=== PATIENT | female | born 1995 ===

== ENCOUNTER 2017-10-24 00:48 | Inpatient (IN) | payer OTHER ==
--- NOTE | 2017-10-24 01:35 | ED PDOC ---
Arrival/HPI - General Chief Complaint: Abdominal Pain Time Seen by Provider: 10/24/17 00:59 Historian: Patient - History of Present Illness Narrative History of Present Illness (Text): 10/24/17 01:23 Venecia Clayton is a 22 year old female, whose past medical history includes gallstones, who presents to the Emergency department complaining of upper abdominal pain tonight. Patient states she was recently diagnosed with gallstones after delivering her child 3 weeks ago. Patient states she has been experiencing some intermittent abdominal discomfort since then, but developed upper abdominal pain radiating to her back after eating dinner yesterday evening. Patient reports associated nausea and vomiting. Patient denies any fever, chills, chest pain, diarrhea, urinary symptoms, back pain, neck pain, headache, dizziness, or any other complaints. Symptom Onset: Gradual Symptom Course: Unchanged Activities at Onset: Light Context: Home Past Medical History - Provider Review Nursing Documentation Reviewed: Yes - Cardiac Hx Hypertension: Yes - Pulmonary Hx Respiratory Disorders: No - Neurological Hx Neurological Disorder: No - HEENT Hx HEENT Disorder: No - Renal Hx Renal Disorder: No - Endocrine/Metabolic Hx Endocrine Disorders: No - Hematological/Oncological Hx Blood Disorders: No - Integumentary Hx Dermatological Disorder: No - Musculoskeletal/Rheumatological Hx Musculoskeletal Disorders: No - Gastrointestinal Hx Gastrointestinal Disorders: No Hx Gall Bladder Disease: Yes (hx gallstones) - Genitourinary/Gynecological Hx Genitourinary Disorders: No - Psychiatric Hx Anxiety: Yes Hx Substance Use: No Family/Social History - Physician Review Nursing Documentation Reviewed: Yes Family/Social History: Unknown Family HX Smoking Status: Never Smoked Hx Alcohol Use: No Hx Substance Use: No Allergies/Home Meds Allergies/Adverse Reactions: Allergies amoxicillin Allergy (Verified 10/24/17 01:13) RASH Home Medications: Home Meds Medication Instructions Recorded Confirmed No Known Home Med 10/24/17 10/24/17 Review of Systems - Physician Review All systems were reviewed & negative as marked: Yes - Review of Systems Constitutional: Normal. absent: Fevers Eyes: Normal ENT: Normal Respiratory: Normal. absent: SOB, Cough Cardiovascular: Normal. absent: Chest Pain Gastrointestinal: Abdominal Pain, Nausea, Vomiting. absent: Diarrhea Genitourinary Female: Normal. absent: Dysuria, Frequency, Hematuria, Urine Output Changes Musculoskeletal: Back Pain. absent: Neck Pain Skin: Normal. absent: Rash Neurological: Normal. absent: Headache, Dizziness Endocrine: Normal Hemo/Lymphatic: Normal Psychiatric: Normal Physical Exam Vital Signs Reviewed: Yes Vital Signs Temp Pulse Resp BP Pulse Ox 10/24/17 04:06 56 L 16 135/73 100 10/24/17 01:14 98.1 F 82 18 165/43 H 99 Temperature: Afebrile Blood Pressure: Hypertensive Pulse: Regular Respiratory Rate: Normal Appearance: Positive for: Well-Appearing, Non-Toxic, Comfortable Pain Distress: None Mental Status: Positive for: Alert and Oriented X 3 - Systems Exam Head: Present: Atraumatic, Normocephalic Pupils: Present: PERRL Extroacular Muscles: Present: EOMI Conjunctiva: Present: Normal Mouth: Present: Moist Mucous Membranes Neck: Present: Normal Range of Motion Respiratory/Chest: Present: Clear to Auscultation, Good Air Exchange. No: Respiratory Distress, Accessory Muscle Use Cardiovascular: Present: Regular Rate and Rhythm, Normal S1, S2. No: Murmurs Abdomen: Present: Tenderness (RUQ tenderness). No: Distention, Peritoneal Signs Back: Present: Normal Inspection Upper Extremity: Present: Normal Inspection. No: Cyanosis, Edema Lower Extremity: Present: Normal Inspection. No: Edema Neurological: Present: GCS=15, CN II-XII Intact, Speech Normal Skin: Present: Warm, Dry, Normal Color. No: Rashes Psychiatric: Present: Alert, Oriented x 3, Normal Insight, Normal Concentration Medical Decision Making ED Course and Treatment: 10/24/17 01:23 Impression: 22 year old female complaining of upper abdominal pain, nausea, and vomiting tonight. Differential Diagnosis included but are not limited to: biliary colic Plan: -- US Gallbladder and Pancreas -- Labs, lipase -- Urinalysis -- IV fluids -- Toradol -- Zofran -- Reassess and disposition Progress Notes: 10/24/17 04:12 US Gallbladder and Pancreas shows: Gallbladder: Contains multiple shadowing stones, as well as sludge. Appears mildly dilated. No significant gallbladder wall thickening noted. No evidence of pericholecystic fluid. Reportedly negative sonographic Chong's sign. Common bile duct: Does not appear abnormally dilated, measuring less than 6 mm in diameter. Liver: Mildly enlarged, measuring 17.7 cm in length. Otherwise within normal limits in appearance. Pancreas: Imaged portions appear unremarkable. Right kidney: Within normal limits in appearance. Measures 11 cm in length. No evidence of hydronephrosis. IMPRESSION: Gallstones. No sonographic evidence of acute cholecystitis. Mild hepatomegaly. Otherwise negative exam. 10/24/17 05:[address] Lomax, who is aware and agrees with plan. Accepts pt in to her service. Pt will go to [facility] observation for cholelithiasis, biliary colic, and intractable abdominal pain. 10/24/17 05:05 Case discussed with certified surgical assistant communication center coordinator, who is aware and agrees to evaluate pt. - Lab Interpretations Lab Results: 10/24/17 01:40 10/24/17 01:40 Lab Results 10/24/17 01:40: WBC 6.6, RBC 4.42, Hgb 12.8, Hct 38.3, MCV 86.7, MCH 29.0, MCHC 33.4, RDW 14.3, Plt Count 388, MPV 9.5 10/24/17 01:40: Sodium 142, Potassium 4.5, Chloride 106, Carbon Dioxide 25, Anion Gap 15, BUN 10, Creatinine 0.6 L, Est GFR ( Amer) > 60, Est GFR ( Non-Af Amer) > 60, Random Glucose 101, Calcium 9.8, Total Bilirubin 0.2, AST 48 H, ALT 50, Alkaline Phosphatase 123, Total Protein 7.7, Albumin 4.1, Globulin 3.5, Albumin/Globulin Ratio 1.2, Lipase 83 10/24/17 01:40: Urine Color Yellow, Urine Appearance Clear, Urine pH 6.0, Ur Specific [place] >= 1.030, Urine Protein Negative, Urine Glucose (UA) Negative, Urine Ketones Negative, Urine Blood Trace-intact H, Urine Nitrate Negative, Urine Bilirubin Negative, Urine Urobilinogen 0.2, Ur Leukocyte Esterase Small H , Urine RBC 0 - 2, Urine WBC 2 - 5, Ur Epithelial Cells 4 - 5, Urine Bacteria Small I have reviewed the lab results: Yes - RAD Interpretation Radiology Orders: 10/24/17 01:36 GALLBLADDER & PANCREAS [US] Stat Vocational Counselor: Radiologist - Medication Orders Current Medication Orders: Discontinued Medications Sodium Chloride (Sodium Chloride 0.9%) 1,000 mls @ 999 mls/hr IV .Q1H1M STA Stop: 10/24/17 02:36 Last Admin: 10/24/17 01:48 Dose: 999 mls/hr eMAR Start Stop Document 10/24/17 01:48 CNR (Rec: 10/24/17 01:48 CNR [id number]) Intravenous Solution Start Date 10/24/17 Start Time 01:48 Ketorolac Tromethamine (Toradol) 30 mg IVP ONCE ONE Stop: 10/24/17 01:37 Last Admin: 10/24/17 01:48 Dose: 30 mg MAR Pain Assessment Document 10/24/17 01:48 CNR (Rec: 10/24/17 01:48 CNR [id number]) Pain Reassessment Is this a pain reassessment? Yes IVP Administration Document 10/24/17 01:48 CNR (Rec: 10/24/17 01:48 CNR [id number]) Charges for Administration # of IVP Administrations 1 Morphine Sulfate (Morphine) 2 mg IVP STAT STA Stop: 10/24/17 04:51 Ondansetron HCl (Zofran Inj) 4 mg IVP ONCE ONE Stop: 10/24/17 01:37 Last Admin: 10/24/17 01:48 Dose: 4 mg IVP Administration Document 10/24/17 01:48 CNR (Rec: 10/24/17 01:48 CNR [id number]) Charges for Administration # of IVP Administrations 1 - Scribe Statement The provider has reviewed the documentation as recorded by the Irwin Velarde Provider Scribe Attestation: All medical record entries made by the Scribe were at my direction and personally dictated by me. I have reviewed the chart and agree that the record accurately reflects my personal performance of the history, physical exam, medical decision making, and the department course for this patient. I have also personally directed, reviewed, and agree with the discharge instructions and disposition. Disposition/Present on Arrival - Present on Arrival Any Indicators Present on Arrival: No History of DVT/PE: No History of Uncontrolled Diabetes: No Urinary Catheter: No History of Decub. Ulcer: No History Surgical Site Infection Following: None - Disposition Have Diagnosis and Disposition been Completed?: Yes Diagnosis: Cholelithiasis, Biliary colic, Intractable pain Disposition: HOSPITALIZED Disposition Time: 05:09 Condition: STABLE Forms: [employer] (Italian)
[2017-10-24] MEDS ORDERED: Sodium Chloride 0.9% 1,000 ML IV STA ×2 (01:36→05:12)
[2017-10-24 02:05] LABS: URINE BILIRUBIN NEGATIVE (NEGATIVE); URINE BLOOD TRACE-INTACT (NEGATIVE); URINE GLUCOSE (UA) NEGATIVE (NEGATIVE); URINE LEUKOCYTE ESTERASE SMALL Leu/uL (NEGATIVE); URINE PROTEIN NEGATIVE mg/dL (<30 mg/dL); URINE UROBILINOGEN 0.2 E.U./dL (<1 E.U./dL)
[2017-10-24 02:07] LABS: HEMOGLOBIN 12.8 g/dL (12.0-16.0); MEAN CELL VOLUME 86.7 fl (80.0-105.0); MEAN CORPUSCULAR HGB CONC 33.4 g/dl (31.0-37.0); MEAN PLATELET VOLUME 9.5 fl (7.0-11.0); RBC 4.42 10^6/uL (3.5-6.1); RED CELL DISTRIBUTION WIDTH 14.3 % (11.5-14.5); WHITE BLOOD COUNT 6.6 10^3/ul (4.5-11.0)
[2017-10-24 02:08] LABS: URINE APPEARANCE CLEAR (CLEAR); URINE COLOR YELLOW (YELLOW)
[2017-10-24 02:17] LABS: ALB/GLOB RATIO 1.2 (1.1-1.8); ALBUMIN 4.1 g/dL (3.0-4.8); ALT/SGPT 50 U/L (7-56); AST/SGOT 48 U/L (14-36); BLOOD UREA NITROGEN 10 mg/dL (7-21); CALCIUM 9.8 mg/dL (8.4-10.5); GFR AFRICAN-AMERICAN > 60; GFR NON-AFRICAN AMERICAN > 60; LIPASE 83 U/L (23-300)
--- NOTE | 2017-10-24 02:42 | US ---
EXAM: US Abdomen Limited, Right Upper Quadrant EXAM DATE/TIME: 10/24/2017 1:36 AM CLINICAL HISTORY: 22 years old, female; Pain; Abdominal pain; Generalized TECHNIQUE: Real-time ultrasound of the right upper quadrant with image documentation. COMPARISON: No relevant prior studies available. FINDINGS: Gallbladder: Contains multiple shadowing stones, as well as sludge. Appears mildly dilated. No significant gallbladder wall thickening noted. No evidence of pericholecystic fluid. Reportedly negative sonographic Chong's sign. Common bile duct: Does not appear abnormally dilated, measuring less than 6 mm in diameter. Liver: Mildly enlarged, measuring 17.7 cm in length. Otherwise within normal limits in appearance. Pancreas: Imaged portions appear unremarkable. Right kidney: Within normal limits in appearance. Measures 11 cm in length. No evidence of hydronephrosis. IMPRESSION: Gallstones. No sonographic evidence of acute cholecystitis. Mild hepatomegaly. Otherwise negative exam.
[2017-10-24 03:16] LABS: URINE BACTERIA SMALL (NEG); URINE RBC 0 - 2 /hpf (0-2)
[2017-10-24] MEDS ORDERED: Morphine 4 mg/ml ISec IVP STA (04:50)
[2017-10-24] MEDS ORDERED: Morphine 4 mg/ml ISec IVP PRN ×2 (05:45→14:10)
[2017-10-24] MEDS ORDERED: metroNIDAZOLE IV 500 mg/100 ml 500 MG/100 ML BAG IVPB SCH (06:00)
[2017-10-24] MEDS ORDERED: Lactated Ringer's 1,000 ML IV SCH ×2 (06:00→14:15)
--- NOTE | 2017-10-24 06:28 | CP.PCM.HP ---
History of Present Illness - History of Present Illness History of Present Illness: General Surgery: Dr Lomax Pt is a 22F with no significant PMH who presents to ED with RUQ pain which started around 11PM. Pt reports she has been having pain every night for the past 3 weeks, always in the RUQ. Pt states the pain feels like contractions, 8/ 10, which do not radiate anywhere. Typically they last 2-3 hours but this particular time it has lasted 9+ hours. Pt admits to single episode of emesis, non-bloody, non-billious. Denies fevers, chills, sob or chest pain. Pt has been told in the past she has gallstones and would like to have her gb removed. PMH: none PSH: none All: amoxicillin Present on Admission - Present on Admission Any Indicators Present on Admission: No Review of Systems - Review of Systems All systems: reviewed and no additional remarkable complaints except (as per hpi ) Past Patient History - Past Social History Smoking Status: Never Smoked - CARDIAC Hx Hypertension: Yes - PULMONARY Hx Respiratory Disorders: No - NEUROLOGICAL Hx Neurological Disorder: No - HEENT Hx HEENT Problems: No - RENAL Hx Chronic Kidney Disease: No - ENDOCRINE/METABOLIC Hx Endocrine Disorders: No - HEMATOLOGICAL/ONCOLOGICAL Hx Blood Disorders: No - INTEGUMENTARY Hx Dermatological Problems: No - MUSCULOSKELETAL/RHEUMATOLOGICAL Hx Musculoskeletal Disorders: No - GASTROINTESTINAL Hx Gastrointestinal Disorders: No Hx Gall Bladder Disease: Yes (hx gallstones) - GENITOURINARY/GYNECOLOGICAL Hx Genitourinary Disorders: No - PSYCHIATRIC Hx Anxiety: Yes Hx Substance Use: No Meds Allergies/Adverse Reactions: Allergies Allergy/AdvReac Type Severity Reaction Status Date / Time amoxicillin Allergy RASH Verified 10/24/17 01:13 Physical Exam - Constitutional Appears: Non-toxic, No Acute Distress - Head Exam Head Exam: NORMAL INSPECTION - Eye Exam Eye Exam: Normal appearance. absent: Scleral icterus - Respiratory Exam Respiratory Exam: absent: Accessory Muscle Use, Respiratory Distress - Cardiovascular Exam Cardiovascular Exam: REGULAR RHYTHM. absent: Tachycardia - GI/Abdominal Exam GI & Abdominal Exam: Soft, Tenderness (RUQ). absent: Distended, Firm, Guarding , Rebound, Rigid - Rectal Exam Rectal Exam: absent: Deferred - Extremities Exam Extremities exam: Negative for: pedal edema - Psychiatric Exam Psychiatric exam: Normal Affect, Normal Mood - Skin Skin Exam: Normal Color, Warm Results - Vital Signs Recent Vital Signs: Last Vital Signs Temp 98.1 F 10/24/17 05:38 Pulse 70 10/24/17 05:38 Resp 19 10/24/17 05:38 BP 131/81 10/24/17 05:38 Pulse Ox 99 10/24/17 05:38 - Labs Result Diagrams: 10/24/17 01:40 10/24/17 01:40 Assessment & Plan - Assessment and Plan (Free Text) Assessment: 22F with biliary colic Plan: admit NPO IV fluids abx plan for OR later today will d/w Dr Dami Mike, PGY3
[2017-10-24] MEDS ORDERED: Ciprofloxacin 400mg/200ml D5W 400 MG/200 ML BAG IVPB SCH (10:00)
[2017-10-24] MEDS ORDERED: Propofol 10 mg/ml Inj (20 ML) ONE (12:31)
[2017-10-24] MEDS ORDERED: Midazolam 2 MG/2 ML VIAL ONE (12:32)
[2017-10-24] MEDS ORDERED: Rocuronium 10 mg/ml (5 ml) ONE (12:34)
[2017-10-24] MEDS ORDERED: Neostigmine Methylsulfate 3mg/3ml Syringe IV ONE (12:58)
[2017-10-24] MEDS ORDERED: Phenylephrine 10 mg/ml Inj ONE (13:30)
[2017-10-24] MEDS ORDERED: Glycopyrrolate 0.2 mg/ml (2ml vial) ONE (13:43)
--- NOTE | 2017-10-24 14:00 | PCM.SURG1 ---
Surgeon's Initial Post Op Note - Surgeon's Notes Surgeon: Dami Reference Archivist: Rayna PGY3, White PGY3 Type of Anesthesia: General Endo Pre-Operative Diagnosis: biliary colic Operative Findings: chronically inflamed gallbladder Post-Operative Diagnosis: same Operation Performed: laparoscopic cholecystectomy Specimen/Specimens Removed: gallbladder Estimated Blood Loss: EBL {In ML}: 10 Blood Products Given: N/A Drains Used: No Drains Post-Op Condition: Good Date of Surgery/Procedure: 10/24/17 Time of Surgery/Procedure: 14:01
[2017-10-24] MEDS ORDERED: Oxycodone/Acetaminophen 5/325 mg Tab PO PRN (14:02)
[2017-10-24] MEDS ORDERED: HYDROmorphone 0.5 mg/0.5 ml ISec IVP PRN (14:03)
--- NOTE | 2017-10-25 07:13 | CP.PCM.PN ---
Subjective - Date & Time of Evaluation Date of Evaluation: 10/25/17 Time of Evaluation: 07:10 - Subjective Subjective: Surgery: Dr. Lomax Pt seen and examined. Resting comfortably in bed. Pain controlled. No N/V. Tolerating diet. Ambulating without difficulty. Objective - Vital Signs/Intake and Output Vital Signs (last 24 hours): Temp Pulse Resp BP Pulse Ox 97.9 F 82 18 137/86 100 10/24/17 15:22 10/24/17 15:22 10/24/17 15:22 10/24/17 15:22 10/24/17 15:22 - Medications Medications: Current Medications Hydromorphone HCl (Dilaudid) 0.5 mg IVP Q4H PRN PRN Reason: Pain, severe (8-10) Lactated Ringer's (Lactated Ringer's) 1,000 mls @ 100 mls/hr IV .Q10H CHARLY Last Admin: 10/24/17 06:10 Dose: 100 mls/hr Ketorolac Tromethamine (Toradol) 30 mg IVP Q6 PRN PRN Reason: Pain, Mild (1-3) Last Admin: 10/24/17 20:22 Dose: 30 mg Oxycodone/Acetaminophen (Percocet 5/325 Mg Tab) 1 tab PO Q4H PRN PRN Reason: Pain, moderate (4-7) Stop: 10/27/17 14:03 Last Admin: 10/24/17 17:29 Dose: 1 tab - Constitutional Appears: Non-toxic, No Acute Distress - Head Exam Head Exam: ATRAUMATIC, NORMOCEPHALIC - Eye Exam Eye Exam: EOMI - ENT Exam ENT Exam: Mucous Membranes Moist - Neck Exam Neck Exam: Full ROM - Respiratory Exam Respiratory Exam: NORMAL BREATHING PATTERN. absent: Accessory Muscle Use, Respiratory Distress - GI/Abdominal Exam GI & Abdominal Exam: Soft, Tenderness (trey-incisional). absent: Distended, Firm, Guarding, Rigid - Extremities Exam Extremities Exam: absent: Calf Tenderness, Pedal Edema - Neurological Exam Neurological Exam: Alert, Awake, Oriented x3 - Skin Skin Exam: Dry, Normal Color, Warm Assessment and Plan - Assessment and Plan (Free Text) Assessment: 22F w. biliary colic, s/p lap mukesh POD#1 -clear for D/C from surgical standpoint -Activity as tolerated, no lifting >15-20lbs for 4 weeks -Tylenol/Advil for pain -F/U w. Dr. Lomax in 1-2 weeks -If symptoms worsen, return to ED -d/w attending Rayna PGY3
[2017-10-25 07:47] VITALS: BP 123/81; PULSE 54; RESP 20; TEMP 98.5; O2SAT 97
--- NOTE | 2017-10-25 16:49 | OP ---
PROCEDURE DATE: 10/24/2017 SURGEON: Dr. Lomax. ASSISTANTS: Dr. Martinez and Dr. Muñoz. ANESTHESIA: General, Dr. Lowe. PREOPERATIVE DIAGNOSIS: Biliary colic. POSTOPERATIVE DIAGNOSIS: Biliary colic. PROCEDURE: Laparoscopic cholecystectomy. DESCRIPTION OF OPERATION: With the patient in the supine position under adequate general anesthesia, the abdomen was prepped and draped in the usual sterile manner. A Veress needle puncture was performed to the umbilicus with inflation to 15 cm water pressure of CO2 and a 10 mm laparoscopic trocar was inserted via a supraumbilical incision. Under direct vision, additional trocars were inserted in the epigastrium and right upper quadrant. The gallbladder was visualized. It was not acutely inflamed or distended; however, there was significant adhesion of the omentum to the peritoneal surface of the gallbladder down to the infundibulum consistent with recent inflammation. The omentum was taken down to the fundus that was grasped and elevated. The omentum was taken down to expose the infundibulum which was grasped and retracted laterally. The cystic duct was dissected and inflammatory fibers surrounding the cystic duct cleared to allow the cystic duct to be viewed anteriorly and posteriorly entering the gallbladder. The cystic duct was then triply clipped and divided. Cystic artery was similarly identified, triply clipped and divided, and the gallbladder was dissected free of the liver bed using an electrocautery. The liver bed was inspected for hemostasis and the dissection was completed. The gallbladder was placed in a specimen retrieval bag and removed via the umbilical port site. It was noted to contain multiple stones. The right upper quadrant was irrigated and suctioned. The pneumoperitoneum was released and the trocars were removed. The umbilical port site was closed with a [id number] fascial suture of 0 Vicryl. All incisions were closed with 4-0 Monocryl subcuticular sutures and Steri-Strips. Dry sterile dressings were applied. The patient tolerated the procedure well and transferred to the recovery room in stable condition. ESTIMATED BLOOD LOSS FOR THE PROCEDURE: 10 mL. Angel Luis Lomax MD
== END 2017-10-25 10:55 | disposition home or self-care (01) | DRG 419 ==
LOC: ED 00:48 → ERH 05:09 → 5RSO 06:32 → OBSVTOIN 11:50 → UNDODISIN 13:07
PROVIDERS: ADMIT Specialist; ATTEND Specialist
PROC: 0FT44ZZ Resection of Gallbladder, Percutaneous Endoscopic Approach (ICD-10-PCS; principal; 2017-10-24 15:00)
DX: K80.10 Calculus of gallbladder with chronic cholecystitis without obstruction (principal); I10 Essential (primary) hypertension; Z88.0 Allergy status to penicillin; R40.2412 Glasgow coma scale score 13-15, at arrival to emergency department

== ENCOUNTER 2017-11-11 13:23 | Emergency (ER) | payer OTHER ==
[2017-11-11 13:36] VITALS: TEMP 98.4; BMI 24.7
[2017-11-11] MEDS ORDERED: Sodium Chloride 0.9% 1,000 ML IV STA (13:56)
[2017-11-11] MEDS ORDERED: HYDROmorphone 0.5 mg/0.5 ml ISec IVP STA (13:56)
--- NOTE | 2017-11-11 13:58 | ED PDOC ---
Arrival/HPI - General Chief Complaint: Abdominal Pain Time Seen by Provider: 11/11/17 13:55 Historian: Patient, Spouse - History of Present Illness Narrative History of Present Illness (Text): 11/11/17 13:55 pt p/w + sudden onset of severe epigastric pain/mid abd pain with mild radiation of pain to her mid back; pt states symptoms occurred ~ < 1 hour prior to ED arrival; pt states she did not feel well since last night; pt states + nausea, no vomiting, NO appetite currently; no fever/chills/sweats, no cp/sob/ palpitations, no urinary/bowel changes, last bm was 1-2 days ago (usual timeframe); pt states her abd pain is worse than her previous biliary colic pain ; pt states she had pork chop for dinner last night; pt states no gross bleeding /rashes pt denied fall/trauma/sick contact, no optical dispenser denied other complaints pt is here for further eval. PCP: none LMP: yesterday pt gave 5 weeks ago pt received choleycystectomy [address] Lomax and did well Time/Duration: Prior to Arrival Symptom Onset: Sudden Symptom Course: Worsening Quality: Stabbing, Cramping Severity Level: 9, Severe Activities at Onset: Rest Context: Home Past Medical History - Provider Review Nursing Documentation Reviewed: Yes - Travel History Have you recently traveled outside [place] w/in the past 3 mons?: No - Past History Past History: No Previous - Infectious Disease Hx of Infectious Diseases: None - Tetanus Immunization Tetanus Immunization: Unknown - Reproductive Menopause: No Currently : No - Cardiac Hx Cardiac Disorders: No - Pulmonary Hx Respiratory Disorders: No - Neurological Hx Neurological Disorder: No - HEENT Hx HEENT Disorder: No - Renal Hx Renal Disorder: No - Endocrine/Metabolic Hx Endocrine Disorders: No - Hematological/Oncological Hx Blood Transfusions: No Hx Blood Transfusion Reaction: No - Integumentary Hx Dermatological Disorder: No - Musculoskeletal/Rheumatological Hx Musculoskeletal Disorders: No Hx Falls: No - Gastrointestinal Hx Gastrointestinal Disorders: No - Genitourinary/Gynecological Other/Comment: Recently had vaginal (09/2017) - Psychiatric Hx Psychophysiologic Disorder: No Hx Substance Use: No - Anesthesia Hx Anesthesia Reactions: No Hx Malignant Hyperthermia: No Family/Social History - Physician Review Nursing Documentation Reviewed: Yes Family/Social History: No Known Family HX Smoking Status: Never Smoked Hx Alcohol Use: No Hx Substance Use: No Hx Substance Use Treatment: No Allergies/Home Meds Allergies/Adverse Reactions: Allergies amoxicillin Allergy (Verified 10/24/17 01:13) RASH Review of Systems - Review of Systems Constitutional: Normal Eyes: Normal ENT: Normal Respiratory: Normal. absent: SOB Cardiovascular: Normal. absent: Chest Pain Gastrointestinal: Abdominal Pain, Nausea. absent: Vomiting Genitourinary Female: Normal Musculoskeletal: Normal Skin: Normal Neurological: Dizziness. absent: Headache Endocrine: Normal Hemo/Lymphatic: Normal Physical Exam Vital Signs Reviewed: Yes Vital Signs Temp Pulse Resp BP Pulse Ox 11/11/17 19:40 71 17 120/70 99 11/11/17 17:30 69 18 124/69 97 11/11/17 15:25 75 18 126/74 97 11/11/17 13:30 98.4 F 82 26 H 128/86 98 Temperature: Afebrile Blood Pressure: Normal Pulse: Regular Respiratory Rate: Tachypneic Appearance: Positive for: Well-Appearing, Non-Toxic, Uncomfortable, Other (alert /awake, holding her abd, uncomfortable, mild-moderate distress due to pain, cooperative, GCS = 15, oriented x 3) Pain Distress: Moderate Mental Status: Positive for: Alert and Oriented X 3 - Systems Exam Head: Present: Atraumatic, Normocephalic Pupils: Present: PERRL, Other (no nystagmus, no photophobia, sclera anicteric, visual field intact b/l) Extroacular Muscles: Present: EOMI Conjunctiva: Present: Normal Ears: Present: Normal Mouth: Present: Normal Teeth, Other (mild dry oral mucosa, no drooling/stridor, no exudate/lesions, uvula/tongue are midline) Pharnyx: Present: Normal Nose (External): Present: Atraumatic Nose (Internal): Present: Normal Inspection Neck: Present: Normal Range of Motion, Trachea Midline. No: Meningeal Signs, MIDLINE TENDERNESS, Paraspinal Tenderness Respiratory/Chest: Present: Clear to Auscultation, Good Air Exchange, Other ( CTA b/l, no w/r/r). No: Respiratory Distress, Accessory Muscle Use Cardiovascular: Present: Regular Rate and Rhythm, Normal S1, S2. No: Murmurs Abdomen: Present: Tenderness (diffuse mid abd tenderness, no gayle's sign, no mcburney's point tenderness), Normal Bowel Sounds, Other (well nourished female , no guarding/rigidity/rebound/masses). No: McBurney's Point Tender Back: Present: Normal Inspection. No: CVA Tenderness, Midline Tenderness, Paraspinal Tenderness Upper Extremity: Present: Normal Inspection, Normal ROM, NORMAL PULSES, Neurovascularly Intact. No: Deformity Lower Extremity: Present: Normal Inspection, NORMAL PULSES, Neurovascularly Intact. No: Deformity Neurological: Present: GCS=15, CN II-XII Intact, Speech Normal Skin: Present: Warm, Normal Color, Other (cap refill ~ 1sec, no ulcerations, no petechiae, mild pallor, no rashes) Psychiatric: Present: Alert, Oriented x 3 Medical Decision Making ED Course and Treatment: 11/11/17 13:59 Impression: epigastric pain i have consider all the differential diagnosis regarding pt's chief medical complaints/clinical findings, including but are not limited to: epigastric pain A/P: epigastric pain - ct - labs - iv - ekg? - ua - supportive care - observe/reevaluation 11/11/17 15:00 Upon reassessment, patient denies any abdominal pain or any new complaints. Waiting on CT and diagnostic results. 11/11/17 17:35 pt is doing well currently pt did have nausea prior, while awaiting on CT results pt states her pain remained well controlled pt is made aware of her medical results pt is awaiting symptoms improvement 11/11/17 19:30 pt tolerated po well pt is comfortable pt developed a reaction to ceftriaxone at the end of the medication (+body itching, no rashes noted) pt is instructed that she may be allergic to Ceftriaxone pt is made aware of her medical results pt is encouraged fluids pt will f/u as directed pt will be discharged home Re-evaluation Time: 17:35 Reassessment Condition: Improved - Lab Interpretations Lab Results: 11/11/17 14:21 11/11/17 14:21 Lab Results 11/11/17 14:21: pO2 62 H, VBG pH 7.38, VBG pCO2 36.0 L, VBG HCO3 21.3, VBG Total CO2 22.4, VBG O2 Sat (Calc) 94.4 H, VBG Base Excess -3.3 L, VBG Potassium 3.7, Sodium 139.0, Chloride 109.0 H, Glucose 101, Lactate 1.6, FiO2 21.0, Venous Blood Potassium 3.7 11/11/17 14:21: Sodium 142, Chloride 108 H, Potassium 3.8, Carbon Dioxide 19 L, Anion Gap 19, BUN 8, Creatinine 0.6 L, Est GFR ( Amer) > 60, Est GFR (Non -Af Amer) > 60, Random Glucose 98, Calcium 9.8, Total Bilirubin 1.0, AST 52 H, ALT 38, Alkaline Phosphatase 116, Total Protein 7.9, Albumin 4.6, Globulin 3.3, Albumin/Globulin Ratio 1.4, Lipase 54 11/11/17 14:21: PT 12.0, INR 1.05, APTT 26.3 11/11/17 14:21: WBC 6.8, RBC 4.24, Hgb 12.0, Hct 35.7 L, MCV 84.2, MCH 28.3, MCHC 33.6, RDW 14.1, Plt Count 409, MPV 9.8, Gran % 36.3 L, Lymph % (Auto) 52.9 H, Pershing % (Auto) 5.1, Eos % (Auto) 5.4 H, Baso % (Auto) 0.3, Gran # 2.46, Lymph # (Auto) 3.6 H, Pershing # (Auto) 0.4, Eos # (Auto) 0.4, Baso # (Auto) 0.02 11/11/17 14:00: Urine Color Yellow, Urine Appearance Sl cloudy, Urine pH 6.0, Ur Specific Dawes >= 1.030, Urine Protein Trace H, Urine Glucose (UA) Negative , Urine Ketones Negative, Urine Blood Large H, Urine Nitrate Negative, Urine Bilirubin Negative, Urine Urobilinogen 0.2, Ur Leukocyte Esterase Moderate H, Urine RBC 20 - 25, Urine WBC 15 - 20, Ur Epithelial Cells 6 - 8, Amorphous Sediment Few, Urine Bacteria Large I have reviewed the lab results: Yes Interpretation: Abnormal lab values (+ UTI) - RAD Interpretation Narrative RAD Interpretations (Text): 11/11/17 14:37 Chest X-ray reviewed by radiologist, shows no active disease. 11/11/17 17:15 CT of Abdomen/Pelvis reviewed by radiologist, shows: FINDINGS: LOWER THORAX: Unremarkable. LIVER: Unremarkable. No gross lesion or ductal dilatation. GALLBLADDER AND BILE DUCTS: Trace fluid in the gallbladder fossa, expected findings status post recent cholecystectomy. PANCREAS: Unremarkable. No gross lesion or ductal dilatation. SPLEEN: Unremarkable. ADRENALS: Unremarkable. No mass. KIDNEYS AND URETERS: Unremarkable. No hydronephrosis. No solid mass. VASCULATURE: Unremarkable. No aortic aneurysm. BOWEL: Constipation without fecal impaction or obstruction. APPENDIX: Normal appendix. PERITONEUM: Unremarkable. No free fluid. No free air. LYMPH NODES: Unremarkable. No enlarged lymph nodes. BLADDER: Unremarkable. REPRODUCTIVE: Unremarkable. BONES: No acute fracture. OTHER FINDINGS: None. IMPRESSION: Status post recent cholecystectomy. Expected findings in the gallbladder fossa. No significant or acute findings to account for/ related to the clinical presentation. Radiology Orders: 11/11/17 13:56 CHEST PORTABLE [RAD] Stat 11/11/17 13:57 ABD & PELVIS IV CONTRAST ONLY [CT] Stat Glass Edger: Radiologist - EKG Interpretation EKG Interpretation (Text): 11/11/17 17:43 Sinus rhythm at 65 bpm, slight rightward axis, no ectopy, no st-t changes, BORDERLINE EKG; no old ekg to compare with Interpreted by ED Physician: Yes Type: 12 lead EKG Comparison: No previous EKG avail. - Medication Orders Current Medication Orders: Discontinued Medications Diphenhydramine HCl (Benadryl) 25 mg IVP STAT STA Stop: 11/11/17 18:36 Last Admin: 11/11/17 18:40 Dose: 25 mg IVP Administration Document 11/11/17 18:40 RD (Rec: 11/11/17 18:40 RD [id number]) Charges for Administration # of IVP Administrations 1 Famotidine (Pepcid) 20 mg IVP STAT STA Stop: 11/11/17 13:57 Last Admin: 11/11/17 14:38 Dose: 20 mg IVP Administration Document 11/11/17 14:38 RD (Rec: 11/11/17 14:38 RD [id number]) Charges for Administration # of IVP Administrations 1 Hydromorphone HCl (Dilaudid) 1 mg IVP STAT STA Stop: 11/11/17 13:57 Last Admin: 11/11/17 14:44 Dose: 1 mg MAR Pain Assessment Document 11/11/17 14:44 RD (Rec: 11/11/17 14:44 RD [id number]) Pain Reassessment Is this a pain reassessment? No Sleep Is patient sleeping during reassessment? No Presence of Pain Presence of Pain Yes Pain Scale Used Pain Scale Used Numeric Location Left, Right or Bilateral Left Upper or Lower Upper Pain Location Body Site Abdomen Description Description Constant Intensity of Pain at present 8 Pain Behavior Guarding Irritability IVP Administration Document 11/11/17 14:44 RD (Rec: 11/11/17 14:44 RD [id number]) Charges for Administration # of IVP Administrations 1 Sodium Chloride (Sodium Chloride 0.9%) 1,000 mls @ 1,000 mls/hr IV .Q1H STA Stop: 11/11/17 14:55 Last Admin: 11/11/17 14:38 Dose: 1,000 mls/hr eMAR Start Stop Document 11/11/17 14:38 RD (Rec: 11/11/17 14:38 RD [id number]) Intravenous Solution Start Date 11/11/17 Start Time 14:38 End Date 11/11/17 End time 15:38 Total Infusion Time 60 Ceftriaxone Sodium (Rocephin 1 Gram Ivpb) 1 gm in 100 mls @ 200 mls/hr IVPB STAT STA PRN Reason: Protocol Stop: 11/11/17 17:54 Last Admin: 11/11/17 17:54 Dose: 200 mls/hr eMAR Start Stop Document 11/11/17 17:54 RD (Rec: 11/11/17 17:54 RD [id number]) Intravenous Solution Start Date 11/11/17 Start Time 17:54 End Date 11/11/17 End time 18:24 Total Infusion Time 30 Ondansetron HCl (Zofran Inj) 4 mg IVP STAT STA Stop: 11/11/17 13:57 Last Admin: 11/11/17 14:38 Dose: 4 mg IVP Administration Document 11/11/17 14:38 RD (Rec: 11/11/17 14:38 RD [id number]) Charges for Administration # of IVP Administrations 1 Ondansetron HCl (Zofran Inj) 8 mg IVP STAT STA Stop: 11/11/17 17:43 Last Admin: 11/11/17 17:53 Dose: 8 mg IVP Administration Document 11/11/17 17:53 RD (Rec: 11/11/17 17:53 RD [id number]) Charges for Administration # of IVP Administrations 1 - Scribe Statement The provider has reviewed the documentation as recorded by the Scribe Khai Orozco. All medical record entries made by the Scribe were at my direction and personally dictated by me. I have reviewed the chart and agree that the record accurately reflects my personal performance of the history, physical exam, medical decision making, and the department course for this patient. I have also personally directed, reviewed, and agree with the discharge instructions and disposition. Disposition/Present on Arrival - Present on Arrival Any Indicators Present on Arrival: No History of DVT/PE: No History of Uncontrolled Diabetes: No Urinary Catheter: No History of Decub. Ulcer: No History Surgical Site Infection Following: None - Disposition Have Diagnosis and Disposition been Completed?: Yes Diagnosis: Epigastric pain, UTI (urinary tract infection) Disposition: HOME/ ROUTINE Disposition Time: 19:34 Patient Plan: Discharge Condition: STABLE Discharge Instructions (ExitCare): Urinary Tract Infections in Adults, Acute Abdomen (Belly Pain), Adult (DC) Print Language: MALAY Additional Instructions: Make sure to see your doctor in 1-2 days DRINK PLENTY OF FLUIDS BLAND DIET IS ENCOURAGED take your medications as prescribed RETURN TO ED IF worse pain, cant breath, persistent vomiting, high fever >101- 102 for hours, altered behavior, slurr speech, facial changes, focal weakness ( arm/leg or both), unable to urinate, heavy/persistent bleeding, passing out, chest pain, or other medical emergencies Prescriptions: Ibuprofen [Motrin] 400 mg PO QID PRN #30 tab PRN Reason: Pain, Mild (1-3) Ondansetron ODT [Zofran ODT] 4 mg PO TID PRN #10 odt PRN Reason: Nausea/Vomiting oxyCODONE/Acetaminophen [Percocet 5/325 mg Tab] 1 ea PO TID PRN #10 tab PRN Reason: Pain, Moderate (4-7) Sulfamethoxazole/Trimethoprim [Bactrim DS 800 mg-160 mg] 1 tab PO BID #14 tab Referrals: [facility] [place] [Outside] - Follow up with primary [facility] [Outside] - Follow up with primary [facility] [Outside] - Follow up with primary Forms: Jua nManuel Tripathi (H[place]er)
[2017-11-11 14:25] LABS: VENOUS BLOOD GAS BASE EXCESS -3.3 mmol/L (0.0-2.0); VENOUS BLOOD GAS PO2 62 mm/Hg (30-55); VENOUS BLOOD PH 7.38 (7.32-7.43)
[2017-11-11 14:26] LABS: BASO # 0.02 K/mm3 (0.0-2.0); BASO % 0.3 % (0.0-3.0); EOS # 0.4 (0.0-0.7); EOS % 5.4 % (1.5-5.0); GRAN # 2.46 (1.4-6.5); GRAN % 36.3 % (50.0-68.0); LYMPH # 3.6 (1.2-3.4); LYMPH % 52.9 % (22.0-35.0); MEAN CELL VOLUME 84.2 fl (80.0-105.0); MEAN CORPUSCULAR HEMOGLOBIN 28.3 pg (25.0-35.0); MEAN CORPUSCULAR HGB CONC 33.6 g/dl (31.0-37.0); MEAN PLATELET VOLUME 9.8 fl (7.0-11.0); MONO # 0.4 (0.1-0.6); MONO % 5.1 % (1.0-6.0); RBC 4.24 10^6/uL (3.5-6.1); RED CELL DISTRIBUTION WIDTH 14.1 % (11.5-14.5); WHITE BLOOD COUNT 6.8 10^3/ul (4.5-11.0)
--- NOTE | 2017-11-11 14:26 | RAD ---
HISTORY: epigastric pain COMPARISON: No prior. FINDINGS: LUNGS: No active pulmonary disease. PLEURA: No significant pleural effusion identified, no pneumothorax apparent. CARDIOVASCULAR: Normal. OSSEOUS STRUCTURES: No significant abnormalities. VISUALIZED UPPER ABDOMEN: Normal. OTHER FINDINGS: None. IMPRESSION: No active disease.
[2017-11-11 14:29] LABS: URINE BILIRUBIN NEGATIVE (NEGATIVE); URINE BLOOD LARGE (NEGATIVE); URINE COLOR YELLOW (YELLOW); URINE GLUCOSE (UA) NEGATIVE (NEGATIVE); URINE LEUKOCYTE ESTERASE MODERATE Leu/uL (NEGATIVE); URINE PROTEIN TRACE mg/dL (<30 mg/dL); URINE UROBILINOGEN 0.2 E.U./dL (<1 E.U./dL)
[2017-11-11 14:30] LABS: URINE APPEARANCE SL CLOUDY (CLEAR)
[2017-11-11 14:35] LABS: INR 1.05 (0.93-1.08); PARTIAL THROMBOPLASTIN TIME 26.3 Seconds (25.1-36.5)
[2017-11-11 14:39] LABS: URINE AMORPHOUS SEDIMENT FEW; URINE BACTERIA LARGE (NEG); URINE RBC 20 - 25 /hpf (0-2); URINE WBC 15 - 20 /hpf (0-6)
[2017-11-11 14:41] LABS: ALB/GLOB RATIO 1.4 (1.1-1.8); ALBUMIN 4.6 g/dL (3.0-4.8); ALT/SGPT 38 U/L (7-56); AST/SGOT 52 U/L (14-36); BLOOD UREA NITROGEN 8 mg/dL (7-21); CALCIUM 9.8 mg/dL (8.4-10.5); GFR AFRICAN-AMERICAN > 60; GFR NON-AFRICAN AMERICAN > 60; LIPASE 54 U/L (23-300)
[2017-11-11] MEDS ORDERED: Iohexol 350 MG/100 ML VIAL ONE (14:48)
--- NOTE | 2017-11-11 16:46 | CT ---
PROCEDURE: CT Abdomen and Pelvis with contrast HISTORY: Recent cholecystectomy, now with severe epigastric pain, nausea COMPARISON: 10/24/2017 abdominal ultrasound documenting cholelithiasis. TECHNIQUE: Contrast dose: 100 cc Omnipaque 350 Radiation dose: Total exam DLP = 276.94 mGy-cm. This CT exam was performed using one or more of the following dose reduction techniques: Automated exposure control, adjustment of the mA and/or kV according to patient size, and/or use of iterative reconstruction technique. FINDINGS: LOWER THORAX: Unremarkable. LIVER: Unremarkable. No gross lesion or ductal dilatation. GALLBLADDER AND BILE DUCTS: Trace fluid in the gallbladder fossa, expected findings status post recent cholecystectomy. PANCREAS: Unremarkable. No gross lesion or ductal dilatation. SPLEEN: Unremarkable. ADRENALS: Unremarkable. No mass. KIDNEYS AND URETERS: Unremarkable. No hydronephrosis. No solid mass. VASCULATURE: Unremarkable. No aortic aneurysm. BOWEL: Constipation without fecal impaction or obstruction. APPENDIX: Normal appendix. PERITONEUM: Unremarkable. No free fluid. No free air. LYMPH NODES: Unremarkable. No enlarged lymph nodes. BLADDER: Unremarkable. REPRODUCTIVE: Unremarkable. BONES: No acute fracture. OTHER FINDINGS: None. IMPRESSION: Status post recent cholecystectomy. Expected findings in the gallbladder fossa. No significant or acute findings to account for/ related to the clinical presentation.
[2017-11-11] MEDS ORDERED: cefTRIAXone 1 gm 1 GM/100 ML BAG IVPB STA (17:25)
[2017-11-11] MEDS ORDERED: DiphenhydrAMINE 50 mg/ml Inj IVP STA (18:35)
--- NOTE | 2017-11-11 18:38 | CARD ---
APPROVED REPORT EKG Measurement Heart [id number] <Conclusion> Sinus rhythm with marked sinus arrhythmia Rightward axis Borderline ECG
[2017-11-11 19:55] VITALS: BP 120/70; PULSE 71; RESP 17; O2SAT 99
== END 2017-11-11 19:55 | disposition home or self-care (01) ==
LOC: ED 13:23
DX: N39.0 Urinary tract infection, site not specified (principal); R10.13 Epigastric pain
CPT/HCPCS: 71045; 74177; 80053; 81001; 82803; 83690; 85025; 85610; 85730; 87086; 93005; 96361; 96365; 96375; 96376; 99284; J0696; J1170; J1200; J2405; J7040; Q9967

== ENCOUNTER 2017-11-12 12:24 | Inpatient (IN) | payer OTHER ==
[2017-11-12] MEDS ORDERED: Sodium Chloride 0.9% 1,000 ML IV STA (13:00)
[2017-11-12] MEDS ORDERED: Morphine 4 mg/ml ISec IVP STA (13:00)
--- NOTE | 2017-11-12 13:05 | ED PDOC ---
Arrival/HPI - General Historian: Patient - History of Present Illness Time/Duration: 24 hours <Campbell Johnson - Last Filed: 11/12/17 15:20> - History of Present Illness Symptom Onset: Sudden Symptom Course: Worsening Severity Level: Severe Activities at Onset: Rest Context: Home <Kristopher Regan - Last Filed: 11/12/17 16:30> - General Chief Complaint: Abdominal Pain Time Seen by Provider: 11/12/17 12:27 - History of Present Illness Narrative History of Present Illness (Text): Patient is a 22 year female with a recent history of chloecystectomy 2 weeks ago and gave 5 weeks ago presenting to the emergency room with severe epigastric/upper abdominal pain with vomiting. She was seen in the emergency room yesterday, with the same complaint. During that time, the patient was found to have a UTI and given Bactrim DS. She was also given percocet for the abdominal pain and zofran for the nausea. CT showed no abnormalities at that time. Patient was stabilized and discharged home but reports that soon after leaving the Emergency department the pain returned and she started vomiting again. She attempted to take the percocet and zofran but without relief. She vomited a total of 5 times since being discharge. She also reports that she has not urinated or had a bowel movement since she was discharged home. She has been unable to eat or drink anything. Denies fevers, chills, chest pain, shortness of breath, cough, sore throat, edema, headaches, vision changes, weakness, numbness or tingling. PCP: none LMP: 11/10/17 pt gave 5 weeks ago pt received choleycystectomy [address] Lomax and did well (Campbell Johnson) Past Medical History - Provider Review Nursing Documentation Reviewed: Yes - Past History Past History: No Previous - Infectious Disease Hx of Infectious Diseases: None - Tetanus Immunization Tetanus Immunization: Unknown - Cardiac Hx Cardiac Disorders: No - Pulmonary Hx Respiratory Disorders: No - Neurological Hx Neurological Disorder: No - HEENT Hx HEENT Disorder: No - Renal Hx Renal Disorder: No - Endocrine/Metabolic Hx Endocrine Disorders: No - Hematological/Oncological Hx Blood Transfusions: No Hx Blood Transfusion Reaction: No - Integumentary Hx Dermatological Disorder: No - Musculoskeletal/Rheumatological Hx Musculoskeletal Disorders: No Hx Falls: No - Gastrointestinal Hx Gastrointestinal Disorders: No - Genitourinary/Gynecological Other/Comment: Recently had vaginal (09/2017) - Psychiatric Hx Psychophysiologic Disorder: No Hx Substance Use: No - Anesthesia Hx Anesthesia: Yes Hx Anesthesia Reactions: No Hx Malignant Hyperthermia: No <Campbell Johnson - Last Filed: 11/12/17 15:20> - Travel History Have you recently traveled outside [place] w/in the past 3 mons?: No - Reproductive Menopause: No Currently : No <Kristopher Regan - Last Filed: 11/12/17 16:30> Family/Social History - Physician Review Nursing Documentation Reviewed: Yes Family/Social History: No Known Family HX Smoking Status: Never Smoked Hx Alcohol Use: No Hx Substance Use: No Hx Substance Use Treatment: No <Campbell Johnson - Last Filed: 11/12/17 15:20> Allergies/Home Meds <Campbell Johnson - Last Filed: 11/12/17 15:20> <Kristopher Regan - Last Filed: 11/12/17 16:30> Allergies/Adverse Reactions: Allergies amoxicillin Allergy (Verified 10/24/17 01:13) RASH Review of Systems - Physician Review All systems were reviewed & negative as marked: Yes - Review of Systems Constitutional: Normal. absent: Fevers Eyes: Normal. absent: Vision Changes ENT: Normal. absent: Sore Throat, Rhinorrhea, Sinus Congestion Respiratory: Normal. absent: SOB, Cough, Wheezing Cardiovascular: Normal. absent: Chest Pain, Palpitations, Edema, Calf Pain Gastrointestinal: Abdominal Pain, Constipation, Nausea, Vomiting. absent: Diarrhea Genitourinary Female: Normal, Frequency (decreased. Has not urinated since leaving Emergency department yesterday) Musculoskeletal: Normal Skin: Normal Neurological: Normal. absent: Headache, Dizziness, Focal Weakness Endocrine: Normal. absent: Diaphoresis Hemo/Lymphatic: Normal. absent: Adenopathy Psychiatric: Normal <Campbell Johnson - Last Filed: 11/12/17 15:20> Physical Exam Vital Signs Reviewed: Yes (RR inputed incorrectly, patient breathing at rate of 18) Temperature: Afebrile Blood Pressure: Normal Pulse: Regular Respiratory Rate: Normal Appearance: Positive for: Non-Toxic, Uncomfortable (unable to sit still, rolling in pain, holding on to abdomen. ) Pain Distress: None Mental Status: Positive for: Alert and Oriented X 3 - Systems Exam Head: Present: Atraumatic, Normocephalic Pupils: Present: PERRL Extroacular Muscles: Present: EOMI Conjunctiva: Present: Normal Mouth: Present: Moist Mucous Membranes Nose (External): Present: Atraumatic Nose (Internal): Present: Normal Inspection, No Active Bleeding Neck: Present: Normal Range of Motion. No: JVD, Lymphadenopathy Respiratory/Chest: Present: Clear to Auscultation, Good Air Exchange. No: Respiratory Distress, Accessory Muscle Use Cardiovascular: Present: Regular Rate and Rhythm, Normal S1, S2. No: Murmurs Abdomen: Present: Tenderness (TTP in upper quadrants b/l, most tender in epigastric region.), Normal Bowel Sounds, Guarding. No: Distention, Peritoneal Signs, Rebound, Rovsing's Sign Present Back: Present: Normal Inspection. No: CVA Tenderness, Midline Tenderness, Paraspinal Tenderness Upper Extremity: Present: Normal Inspection, NORMAL PULSES. No: Cyanosis, Edema , Tenderness Lower Extremity: Present: Normal Inspection, NORMAL PULSES. No: Edema, CALF TENDERNESS Neurological: Present: GCS=15, CN II-XII Intact, Speech Normal Skin: Present: Warm, Dry, Normal Color. No: Rashes Psychiatric: Present: Alert, Oriented x 3, Normal Insight, Normal Concentration <Campbell Johnson - Last Filed: 11/12/17 15:20> Vital Signs Temp Pulse Resp BP Pulse Ox 11/12/17 14:03 70 17 135/72 100 11/12/17 12:25 98.7 F 75 75 H 138/57 L 100 Medical Decision Making Re-evaluation Time: 15:27 Reassessment Condition: Re-examined, Improving,but remains with symptoms - Lab Interpretations I have reviewed the lab results: Yes Interpretation: Abnormal lab values - RAD Interpretation Procedures Analyst: Radiologist <Campbell Johnson - Last Filed: 11/12/17 15:20> - Critical Care Critical Care Minutes: 45 minutes Critical Care Time: Excluding Proc Time <Kristopher Regan - Last Filed: 11/12/17 16:30> ED Course and Treatment: 11/12/17 13:26 Patient given Zofran, Morphine and Pepcid. Blood work ordered, awaiting results Abdominal US ordered - will correlate with abd/pel CT from yesterday. 11/12/17 14:29 Patient still experiencing pain. Recently received medications. awaiting lab results, has not gone for US yet. 11/12/17 15:30 Patient appears more comfortable but states that she her pain is improved but still present. She is not currently nauseous. Abdominal US - Status post cholecystectomy. Minor fatty infiltration of the liver. No bile duct dilatation Patient's transaminases are greatly elevated compared to yesterday. Bilirubin elevated. Spoke with Dr. Souza, has accepted patient onto hospitalist service. (ElizabethCampbell) 11/12/17 13:28 Patient Seen With Resident: I performed the hx and physical exam of the patient and discussed their mgt with the RESIDENT. I reviewed the RESIDENT's NOTE and agree with the assessment and plan of care. 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 med service for admission of the patient, dr Jones recommends admitting patient to the hospitalists 1530 - hospitalists contacted Dr Souza, made aware, accepted patient unto his service (Kristopher Regan) - Critical Care Narrative Critical Care (Text): 11/12/17 16:26 critical care time: 45min, excluding procedure time, excluding time teaching residents/students/mid-level providers; including initial eval/diagnosis, diagnostic interpretation, re-eval, consultations, final disposition (Kristopher Regan) - Lab Interpretations Lab Results: 11/12/17 14:23 11/12/17 14:23 Lab Results 11/12/17 14:23: Sodium 143, Potassium 3.9, Chloride 106, Carbon Dioxide 24, Anion Gap 17, BUN 5 L, Creatinine 0.7, Est GFR ( Amer) > 60, Est GFR (Non -Af Amer) > 60, Random Glucose 108, Calcium 9.6, Total Bilirubin 4.4 H, AST 748 H D, ALT 947 H, Alkaline Phosphatase 216 H D, Total Protein 7.8, Albumin 4.6, Globulin 3.2, Albumin/Globulin Ratio 1.4, Lipase 42 11/12/17 14:23: WBC 4.8 D, RBC 4.21, Hgb 12.0, Hct 35.7 L, MCV 84.8, MCH 28.5, MCHC 33.6, RDW 14.3, Plt Count 404, MPV 10.1, Gran % 52.9, Lymph % (Auto) 37.1 H , [place] % (Auto) 7.1 H, Eos % (Auto) 2.5, Baso % (Auto) 0.4, Gran # 2.54, Lymph # (Auto) 1.8, [place] # (Auto) 0.3, Eos # (Auto) 0.1, Baso # (Auto) 0.02 - RAD Interpretation Narrative RAD Interpretations (Text): 11/12/17 15:28 Abdominal US - Status post cholecystectomy. Minor fatty infiltration of the liver. No bile duct dilatation (Campbell Johnson) Radiology Orders: 11/12/17 13:00 ABDOMEN COMPLETE [US] Stat - Medication Orders Current Medication Orders: Discontinued Medications Famotidine (Pepcid) 20 mg IVP STAT STA Stop: 11/12/17 13:44 Last Admin: 11/12/17 14:12 Dose: 20 mg IVP Administration Document 11/12/17 14:12 SF (Rec: 11/12/17 14:13 SF [facility] [id number]) Charges for Administration # of IVP Administrations 1 Sodium Chloride (Sodium Chloride 0.9%) 1,000 mls @ 1,000 mls/hr IV .Q1H STA Stop: 11/12/17 13:59 Last Admin: 11/12/17 14:04 Dose: 1,000 mls/hr eMAR Start Stop Document 11/12/17 14:04 SF (Rec: 11/12/17 14:05 SF [facility] [id number]) Intravenous Solution Start Date 11/12/17 Start Time 14:04 End Date 11/12/17 End time 15:04 Total Infusion Time 60 Levofloxacin/Dextrose (Levaquin 500mg) 500 mg in 100 mls @ 100 mls/hr IVPB STAT STA PRN Reason: Protocol Stop: 11/12/17 14:43 Last Admin: 11/12/17 14:13 Dose: 100 mls/hr eMAR Start Stop Document 11/12/17 14:13 SF (Rec: 11/12/17 14:13 SF [facility] [id number]) Intravenous Solution Start Date 11/12/17 Start Time 14:13 End Date 11/12/17 End time 15:13 Total Infusion Time 60 Morphine Sulfate (Morphine) 4 mg IVP STAT STA Stop: 11/12/17 13:01 Last Admin: 11/12/17 14:12 Dose: 4 mg MAR Pain Assessment Document 11/12/17 14:12 SF (Rec: 11/12/17 14:12 SF [facility] [id number] Pain Reassessment Is this a pain reassessment? Yes Sleep Is patient sleeping during reassessment? No Presence of Pain Presence of Pain Yes IVP Administration Document 11/12/17 14:12 SF (Rec: 11/12/17 14:12 SF [facility] [id number]) Charges for Administration # of IVP Administrations 1 Ondansetron HCl (Zofran Inj) 8 mg IVP STAT STA Stop: 11/12/17 13:01 Last Admin: 11/12/17 14:12 Dose: 8 mg IVP Administration Document 11/12/17 14:12 SF (Rec: 11/12/17 14:12 SF [facility] [id number]) Charges for Administration # of IVP Administrations 1 Disposition/Present on Arrival - Present on Arrival Any Indicators Present on Arrival: No History of DVT/PE: No History of Uncontrolled Diabetes: No Urinary Catheter: No History of Decub. Ulcer: No History Surgical Site Infection Following: None - Disposition Have Diagnosis and Disposition been Completed?: Yes Disposition Time: 15:27 Patient Plan: Admission <Campbell Johnson - Last Filed: 11/12/17 15:20> <Kristopher Regan - Last Filed: 11/12/17 16:30> - Disposition Diagnosis: Abdominal pain, Transaminitis, Dehydration, Intractable pain Disposition: HOSPITALIZED Patient Problems: Current Active Problems Problem Status Onset Abdominal pain Acute Transaminitis Acute Condition: GUARDED
[2017-11-12] MEDS ORDERED: levoFLOXacin 500 mg in D5W 500 MG/100 ML BAG IVPB STA (13:44)
[2017-11-12 14:28] LABS: BASO # 0.02 K/mm3 (0.0-2.0); BASO % 0.4 % (0.0-3.0); EOS # 0.1 (0.0-0.7); EOS % 2.5 % (1.5-5.0); GRAN # 2.54 (1.4-6.5); GRAN % 52.9 % (50.0-68.0); LYMPH # 1.8 (1.2-3.4); LYMPH % 37.1 % (22.0-35.0); MEAN CELL VOLUME 84.8 fl (80.0-105.0); MEAN CORPUSCULAR HEMOGLOBIN 28.5 pg (25.0-35.0); MEAN CORPUSCULAR HGB CONC 33.6 g/dl (31.0-37.0); MEAN PLATELET VOLUME 10.1 fl (7.0-11.0); MONO # 0.3 (0.1-0.6); MONO % 7.1 % (1.0-6.0); RBC 4.21 10^6/uL (3.5-6.1); RED CELL DISTRIBUTION WIDTH 14.3 % (11.5-14.5); WHITE BLOOD COUNT 4.8 10^3/ul (4.5-11.0)
[2017-11-12 14:41] LABS: ALB/GLOB RATIO 1.4 (1.1-1.8); GFR AFRICAN-AMERICAN > 60; GFR NON-AFRICAN AMERICAN > 60
[2017-11-12 14:42] LABS: ALBUMIN 4.6 g/dL (3.0-4.8); ALT/SGPT 947 U/L (7-56); AST/SGOT 748 U/L (14-36); BLOOD UREA NITROGEN 5 mg/dL (7-21); CALCIUM 9.6 mg/dL (8.4-10.5); LIPASE 42 U/L (23-300)
--- NOTE | 2017-11-12 15:01 | US ---
HISTORY: abdominal pain, compare with recent CT COMPARISON: CT scan yesterday TECHNIQUE: Sonographic evaluation of the abdomen. FINDINGS: LIVER: Measures 13.1 cm. Slightly coarse and increased echotexture of the liver is noted. This suggests mild fatty infiltration. . No mass. No intrahepatic bile duct dilatation. GALLBLADDER: Gallbladder is been previously removed. No focal fluid collections in the gallbladder fossa are noted. COMMON BILE DUCT: Measures 4-5 mm. No stones. No dilatation. PANCREAS: Unremarkable as visualized. No mass. No ductal dilatation. RIGHT KIDNEY: Measures 11cm. Normal echogenicity. No calculus, mass, or hydronephrosis. LEFT KIDNEY: Measures 10.2cm. Normal echogenicity. No calculus, mass, or hydronephrosis. SPLEEN: Normal in size and contour. No mass. AORTA: No aneurysmal dilatation. IVC: Unremarkable. OTHER FINDINGS: None. IMPRESSION: Status post cholecystectomy. Minor fatty infiltration of the liver. No bile duct dilatation.
--- NOTE | 2017-11-12 16:30 | CP.PCM.HP ---
<Gigi Oro - Last Filed: 11/12/17 16:22> History of Present Illness - History of Present Illness History of Present Illness: H&P for hospitalist service - Robert Preethi PGY2 cc: abdominal pain HPI: Patient is a 22yo female with no significant past medical history that presents c/o epigastric abdominal pain. She reports that the pain started yesterday at which point she went to the emergency room for evaluation. She was told at that time that she had a UTI, was given rocephin and subsequently discharged home on bactrim, zofran and percocet for pain. She reported that the pain got progressively worse over the last day and was associated with nausea, lack of appetite and nonbilious, nonbloody vomiting. She states that the pain previously radiated into her back but now localized to the epigastric region. Notably, she gave 5 weeks prior and underwent a cholecystectomy [address] Lomax. She reported no apparent alleviating or exacerbating factors and denied taking any over the counter supplements, herbal medications, illicit drug use or alcohol use. She recalled taking 2-3 doses of tylenol yesterday and 1 dose of percocet. She denied chest pain, palpitations, SOB, focal weakness, numbness, tingling. 12point ROS as per HPI above otherwise negative PMH: as stated above PSH: cholecystectomy [address] Lomax Allergies: Amoxicillin (rash) Social Hx: Denies tobacco, alcohol and illicit drug use Family Hx: Reported no family history of malignancy, liver disease or other notable comorbidities Present on Admission - Present on Admission Any Indicators Present on Admission: No Past Patient History - Infectious Disease Hx of Infectious Diseases: None - Tetanus Immunizations Tetanus Immunization: Unknown - Past Social History Smoking Status: Never Smoked - CARDIAC Hx Cardiac Disorders: No - PULMONARY Hx Respiratory Disorders: No - NEUROLOGICAL Hx Neurological Disorder: No - HEENT Hx HEENT Problems: No - RENAL Hx Chronic Kidney Disease: No - ENDOCRINE/METABOLIC Hx Endocrine Disorders: No - HEMATOLOGICAL/ONCOLOGICAL Hx Blood Transfusions: No Hx Blood Transfusion Reaction: No - INTEGUMENTARY Hx Dermatological Problems: No - MUSCULOSKELETAL/RHEUMATOLOGICAL Hx Musculoskeletal Disorders: No Hx Falls: No - GASTROINTESTINAL Hx Gastrointestinal Disorders: No - GENITOURINARY/GYNECOLOGICAL Other/Comment: Recently had vaginal (09/2017) - PSYCHIATRIC Hx Psychophysiologic Disorder: No Hx Substance Use: No - SURGICAL HISTORY Hx Surgeries: No - ANESTHESIA Hx Anesthesia: Yes Hx Anesthesia Reactions: No Hx Malignant Hyperthermia: No Meds Allergies/Adverse Reactions: Allergies Allergy/AdvReac Type Severity Reaction Status Date / Time amoxicillin Allergy RASH Verified 11/12/17 18:48 Physical Exam - Constitutional Appears: No Acute Distress - Head Exam Head Exam: ATRAUMATIC, NORMAL INSPECTION, NORMOCEPHALIC - Eye Exam Eye Exam: EOMI, PERRL - ENT Exam ENT Exam: Mucous Membranes Moist - Respiratory Exam Respiratory Exam: Clear to Auscultation Bilateral. absent: Rales, Rhonchi, Wheezes - Cardiovascular Exam Cardiovascular Exam: RRR, +S1, +S2. absent: Gallop, JVD, Rubs - GI/Abdominal Exam GI & Abdominal Exam: Soft, Tenderness. absent: Distended, Firm, Guarding, Rebound Additional comments: stretch gray notable on lower abdomen trochar scars from cholecystectomy - Neurological Exam Neurological exam: Alert, CN II-XII Intact, Oriented x3 - Psychiatric Exam Psychiatric exam: Normal Affect, Normal Mood - Skin Skin Exam: Dry, Intact, Normal Color, Warm Results - Vital Signs Recent Vital Signs: Last Vital Signs Temp 98.7 F 11/12/17 12:25 Pulse 70 11/12/17 14:03 Resp 17 11/12/17 14:03 BP 135/72 11/12/17 14:03 Pulse Ox 100 11/12/17 14:03 - Labs Result Diagrams: 11/12/17 14:23 11/12/17 14:23 Labs: Laboratory Results - last 24 hr 11/12/17 11/12/17 14:23 14:23 WBC 4.8 D RBC 4.21 Hgb 12.0 Hct 35.7 L MCV 84.8 MCH 28.5 MCHC 33.6 RDW 14.3 Plt Count 404 MPV 10.1 Gran % 52.9 Lymph % (Auto) 37.1 H [place] % (Auto) 7.1 H Eos % (Auto) 2.5 Baso % (Auto) 0.4 Gran # 2.54 Lymph # (Auto) 1.8 [place] # (Auto) 0.3 Eos # (Auto) 0.1 Baso # (Auto) 0.02 Sodium 143 Potassium 3.9 Chloride 106 Carbon Dioxide 24 Anion Gap 17 BUN 5 L Creatinine 0.7 Est GFR ( Amer) > 60 Est GFR (Non-Af Amer) > 60 Random Glucose 108 Calcium 9.6 Total Bilirubin 4.4 H AST 748 H D ALT 947 H Alkaline Phosphatase 216 H D Total Protein 7.8 Albumin 4.6 Globulin 3.2 Albumin/Globulin Ratio 1.4 Lipase 42 Assessment & Plan - Assessment and Plan (Free Text) Plan: 22yo female with history of uneventful delivery of her child 5 weeks prior and cholecystectomy 2 weeks prior presents with complaint of epigastric abdominal pain in the setting of notable transaminitis 1. Transaminitis -Abdominal US reviewed; reaveled no bile duct dilatation, minor fatty infiltration of the liver, status post cholecystectomy -CT abd/pelvis from yesterday reviewed; revealed no significant or acute findings to account for abdominal pain -Received rocephin and bactrim which are potential causes of transaminits, presently abx on hold -Workup pending including hepatitis panel, TIERRA, IGG, Anti-Sm, Anti-Mitochondrial -Drug screen pending -Tylenol level pending -Alcohol level pending -NPO -Surgery consulted - Dr. Lomax -GI consulted - Dr. Campo 2. UTI -UA reviewed -Received rocephin and bactrim previously. Abx presently on hold pending transaminits workup 3. DVT Prophylaxis -SCD's Patient seen and case discussed with attending, Dr. Souza <Hitesh Souza - Last Filed: 11/13/17 07:22> Results - Vital Signs Recent Vital Signs: Last Vital Signs Temp 98.7 F 11/12/17 21:06 Pulse 65 11/12/17 21:06 Resp 17 11/12/17 21:06 BP 130/81 11/12/17 21:06 Pulse Ox 100 11/12/17 16:27 - Labs Result Diagrams: 11/12/17 14:23 11/12/17 16:37 Labs: Laboratory Results - last 24 hr 11/12/17 11/12/17 11/12/17 16:37 16:37 16:37 Sodium Potassium Chloride Carbon Dioxide Anion Gap BUN Creatinine Est GFR ( Amer) Est GFR (Non-Af Amer) Random Glucose Calcium Total Bilirubin AST ALT Alkaline Phosphatase Total Creatine Kinase Troponin I NT-Pro-B Natriuret Pep Total Protein Albumin Globulin Albumin/Globulin Ratio Urine Color Urine Appearance Urine pH Ur Specific [place] Urine Protein Urine Glucose (UA) Urine Ketones Urine Blood Urine Nitrate Urine Bilirubin Urine Urobilinogen Ur Leukocyte Esterase Urine RBC Urine WBC Ur Epithelial Cells Urine Opiates Screen Urine Methadone Screen Acetaminophen < 10.0 L Ur Barbiturates Screen Ur Phencyclidine Scrn Ur Amphetamines Screen U Benzodiazepines Scrn U Oth Cocaine Metabols U Cannabinoids Screen Alcohol, Quantitative < 10 IgG 1062.8 11/12/17 11/12/17 11/12/17 16:37 16:52 16:52 Sodium 145 Potassium 4.0 Chloride 111 H Carbon Dioxide 22 Anion Gap 16 BUN 4 L Creatinine 0.6 L Est GFR ( Amer) > 60 Est GFR (Non-Af Amer) > 60 Random Glucose 101 Calcium 9.2 Total Bilirubin 4.2 H AST 670 H ALT 852 H Alkaline Phosphatase 202 H Total Creatine Kinase Troponin I NT-Pro-B Natriuret Pep Total Protein 7.4 Albumin 4.3 Globulin 3.2 Albumin/Globulin Ratio 1.4 Urine Color Dark yellow Urine Appearance Slight-cloudy Urine pH 8.0 Ur Specific [place] 1.015 Urine Protein 30 H Urine Glucose (UA) 100 H Urine Ketones Negative Urine Blood Moderate H Urine Nitrate Negative Urine Bilirubin Moderate H Urine Urobilinogen 4.0 H Ur Leukocyte Esterase Large H Urine RBC 0 - 2 Urine WBC 5 - 10 Ur Epithelial Cells 4 - 5 Urine Opiates Screen Positive H Urine Methadone Screen Negative Acetaminophen Ur Barbiturates Screen Negative Ur Phencyclidine Scrn Negative Ur Amphetamines Screen Negative U Benzodiazepines Scrn Negative U Oth Cocaine Metabols Negative U Cannabinoids Screen Negative Alcohol, Quantitative IgG 11/12/17 11/13/17 18:00 00:30 Sodium Potassium Chloride Carbon Dioxide Anion Gap BUN Creatinine Est GFR ( Amer) Est GFR (Non-Af Amer) Random Glucose Calcium Total Bilirubin AST ALT Alkaline Phosphatase Total Creatine Kinase 37 Troponin I < 0.01 < 0.01 NT-Pro-B Natriuret Pep 230 Total Protein Albumin Globulin Albumin/Globulin Ratio Urine Color Urine Appearance Urine pH Ur Specific [place] Urine Protein Urine Glucose (UA) Urine Ketones Urine Blood Urine Nitrate Urine Bilirubin Urine Urobilinogen Ur Leukocyte Esterase Urine RBC Urine WBC Ur Epithelial Cells Urine Opiates Screen Urine Methadone Screen Acetaminophen Ur Barbiturates Screen Ur Phencyclidine Scrn Ur Amphetamines Screen U Benzodiazepines Scrn U Oth Cocaine Metabols U Cannabinoids Screen Alcohol, Quantitative IgG Attending/Attestation - Attestation I have personally seen and examined this patient.: Yes I have fully participated in the care of the patient.: Yes I have reviewed all pertinent clinical information: Yes Notes (Text): 11/12/17 22 year old female with past medical history of recent cholecystectomy (2 weeks prior) and recent delivery (5 weeks prior) presents with abdominal pain; found to have significant transaminitis and UTI. CT abd/pelvis and abdominal ultrasound were reviewed as above. Surgery and GI evaluations were requested. Consider HIDA vs MRCP. Lab workup for transaminitis was ordered as above. She received rocephin and levaquin in ER for UTI. Will repeat UA and follow up on urine culture. Hitesh Souza MD Hospitalist.
[2017-11-12 17:09] LABS: ALB/GLOB RATIO 1.4 (1.1-1.8); ALBUMIN 4.3 g/dL (3.0-4.8); ALT/SGPT 852 U/L (7-56); AST/SGOT 670 U/L (14-36); BLOOD UREA NITROGEN 4 mg/dL (7-21); CALCIUM 9.2 mg/dL (8.4-10.5); GFR AFRICAN-AMERICAN > 60; GFR NON-AFRICAN AMERICAN > 60
[2017-11-12 17:37] LABS: URINE BILIRUBIN MODERATE (NEGATIVE); URINE BLOOD MODERATE (NEGATIVE); URINE GLUCOSE (UA) 100 mg/dL (NEGATIVE); URINE LEUKOCYTE ESTERASE LARGE Leu/uL (NEGATIVE); URINE PROTEIN 30 mg/dL (<30 mg/dL)
[2017-11-12 17:39] LABS: URINE APPEARANCE SLIGHT-CLOUDY (CLEAR); URINE COLOR DARK YELLOW (YELLOW)
[2017-11-12 17:42] LABS: URINE RBC 0 - 2 /hpf (0-2)
[2017-11-12 17:48] LABS: PHENCYCLIDINE, UR NEGATIVE (NEGATIVE)
[2017-11-12 17:50] LABS: BARBITURATES, UR NEGATIVE (NEGATIVE); BENZODIAZEPINES, UR NEGATIVE (NEGATIVE); OPIATES, UR POSITIVE (NEGATIVE)
[2017-11-12 18:38] LABS: B-TYPE NATRIURETIC PEPTIDE 230 pg/mL (0-450); TROPONIN I < 0.01 ng/mL
--- NOTE | 2017-11-12 19:15 | CP.PCM.CON ---
History of Present Illness - History of Present Illness History of Present Illness: Surgery: Dr. Lomax CC: Abd pain HPI: 22F w. recent indira mayorga on 10/24 presented to ED yesterday w. acute onset of epigastric pain that was constant, described as stabbing, and associated w. nausea. In ED pt had CT done which showed normal post-op and findings consistent w. UTI on lab work, she was D/C w. bactrim. Today the symptoms worsened in severity and she began to have episodes of clear emesis x 5. She denies Fever but reports chills. She also reports decreased appetite. In ED U/S was ordered which was unremarkable, however labwork showed transaminitis w. Tbili of 4.2. PMH: none PSH: indira mayorga Meds: None ALL: amoxicillin Social: No etoh/tobacco/drugs Fhx: non-contributory Review of Systems - Review of Systems All systems: reviewed and no additional remarkable complaints except (HPI) Past Patient History - Infectious Disease Hx of Infectious Diseases: None - Tetanus Immunizations Tetanus Immunization: Unknown - Past Social History Smoking Status: Never Smoked - CARDIAC Hx Cardiac Disorders: No - PULMONARY Hx Respiratory Disorders: No - NEUROLOGICAL Hx Neurological Disorder: No - HEENT Hx HEENT Problems: No - RENAL Hx Chronic Kidney Disease: No - ENDOCRINE/METABOLIC Hx Endocrine Disorders: No - HEMATOLOGICAL/ONCOLOGICAL Hx Blood Transfusions: No Hx Blood Transfusion Reaction: No - INTEGUMENTARY Hx Dermatological Problems: No - MUSCULOSKELETAL/RHEUMATOLOGICAL Hx Musculoskeletal Disorders: No Hx Falls: No - GASTROINTESTINAL Hx Gastrointestinal Disorders: No - GENITOURINARY/GYNECOLOGICAL Other/Comment: Recently had vaginal (09/2017) - PSYCHIATRIC Hx Psychophysiologic Disorder: No Hx Substance Use: No - SURGICAL HISTORY Hx Surgeries: No - ANESTHESIA Hx Anesthesia: Yes Hx Anesthesia Reactions: No Hx Malignant Hyperthermia: No Meds Allergies/Adverse Reactions: Allergies Allergy/AdvReac Type Severity Reaction Status Date / Time amoxicillin Allergy RASH Verified 11/12/17 18:48 - Medications Medications: Current Medications Ondansetron HCl (Zofran Inj) 4 mg IVP Q4H PRN PRN Reason: Nausea/Vomiting Pantoprazole Sodium (Protonix Inj) 40 mg IVP DAILY CHARLY Physical Exam - Constitutional Appears: Non-toxic, No Acute Distress - Head Exam Head Exam: ATRAUMATIC, NORMOCEPHALIC - Eye Exam Eye Exam: EOMI. absent: Scleral icterus - ENT Exam ENT Exam: Mucous Membranes Moist, Normal External Ear Exam - Neck Exam Neck exam: Positive for: Full Rom - Respiratory Exam Respiratory Exam: NORMAL BREATHING PATTERN. absent: Accessory Muscle Use, Respiratory Distress - GI/Abdominal Exam GI & Abdominal Exam: Soft, Tenderness (epigastric). absent: Distended, Firm, Guarding, Rebound, Rigid - Extremities Exam Extremities exam: Negative for: calf tenderness, pedal edema - Neurological Exam Neurological exam: Alert, Oriented x3 - Psychiatric Exam Psychiatric exam: Normal Affect, Normal Mood - Skin Skin Exam: Normal Color, Warm Results - Vital Signs Recent Vital Signs: Last Vital Signs Temp 98.7 F 11/12/17 12:25 Pulse 65 11/12/17 16:27 Resp 17 11/12/17 16:27 BP 130/81 11/12/17 16:27 Pulse Ox 100 11/12/17 16:27 - Labs Result Diagrams: 11/12/17 14:23 11/12/17 16:37 Labs: Laboratory Results - last 24 hr 11/12/17 11/12/17 11/12/17 16:37 16:37 16:37 Sodium 145 Potassium 4.0 Chloride 111 H Carbon Dioxide 22 Anion Gap 16 BUN 4 L Creatinine 0.6 L Est GFR ( Amer) > 60 Est GFR (Non-Af Amer) > 60 Random Glucose 101 Calcium 9.2 Total Bilirubin 4.2 H AST 670 H ALT 852 H Alkaline Phosphatase 202 H Total Creatine Kinase Troponin I NT-Pro-B Natriuret Pep Total Protein 7.4 Albumin 4.3 Globulin 3.2 Albumin/Globulin Ratio 1.4 Urine Color Urine Appearance Urine pH Ur Specific Ringold Urine Protein Urine Glucose (UA) Urine Ketones Urine Blood Urine Nitrate Urine Bilirubin Urine Urobilinogen Ur Leukocyte Esterase Urine RBC Urine WBC Ur Epithelial Cells Urine Opiates Screen Urine Methadone Screen Acetaminophen < 10.0 L Ur Barbiturates Screen Ur Phencyclidine Scrn Ur Amphetamines Screen U Benzodiazepines Scrn U Oth Cocaine Metabols U Cannabinoids Screen Alcohol, Quantitative < 10 11/12/17 11/12/17 11/12/17 16:52 16:52 18:00 Sodium Potassium Chloride Carbon Dioxide Anion Gap BUN Creatinine Est GFR ( Amer) Est GFR (Non-Af Amer) Random Glucose Calcium Total Bilirubin AST ALT Alkaline Phosphatase Total Creatine Kinase 37 Troponin I < 0.01 NT-Pro-B Natriuret Pep 230 Total Protein Albumin Globulin Albumin/Globulin Ratio Urine Color Dark yellow Urine Appearance Slight-cloudy Urine pH 8.0 Ur Specific Ring[place] 1.015 Urine Protein 30 H Urine Glucose (UA) 100 H Urine Ketones Negative Urine Blood Moderate H Urine Nitrate Negative Urine Bilirubin Moderate H Urine Urobilinogen 4.0 H Ur Leukocyte Esterase Large H Urine RBC 0 - 2 Urine WBC 5 - 10 Ur Epithelial Cells 4 - 5 Urine Opiates Screen Positive H Urine Methadone Screen Negative Acetaminophen Ur Barbiturates Screen Negative Ur Phencyclidine Scrn Negative Ur Amphetamines Screen Negative U Benzodiazepines Scrn Negative U Oth Cocaine Metabols Negative U Cannabinoids Screen Negative Alcohol, Quantitative - Imaging and Cardiology US - abdomen Status: Image reviewed by me, Report reviewed by me Assessment & Plan - Assessment and Plan (Free Text) Assessment: 22F s/p lap mukesh w. abd pain and transamintis, R/O bile leak -HIDA ordered -CLD for now, NPO at midnight -IVF -pain meds -zofran -further recs pending HIDA results -d/w attending Rayna PGY3
[2017-11-12] MEDS: Sodium Chloride 0.9% 1,000 ML IV SCH (20:00)
[2017-11-12 21:29] VITALS: BMI 23.9
[2017-11-12] MEDS ORDERED: Pneumococcal 23-Valent Vaccine IM ONE (21:29)
[2017-11-12] MEDS: HYDROmorphone 0.5 mg/0.5 ml ISec IVP PRN (22:16)
[2017-11-13] MEDS: HYDROmorphone 0.5 mg/0.5 ml ISec IVP PRN ×5 (04:48→22:00)
[2017-11-13] MEDS: Sodium Chloride 0.9% 1,000 ML IV SCH ×2 (05:20→17:59)
[2017-11-13 07:30] LABS: BASO # 0.04 K/mm3 (0.0-2.0); BASO % 0.7 % (0.0-3.0); EOS # 0.2 (0.0-0.7); EOS % 3.9 % (1.5-5.0); GRAN # 2.78 (1.4-6.5); GRAN % 47.5 % (50.0-68.0); HEMOGLOBIN 11.2 g/dL (12.0-16.0); LYMPH # 2.3 (1.2-3.4); LYMPH % 39.2 % (22.0-35.0); MEAN CELL VOLUME 86.3 fl (80.0-105.0); MEAN CORPUSCULAR HGB CONC 32.5 g/dl (31.0-37.0); MEAN PLATELET VOLUME 9.7 fl (7.0-11.0); MONO # 0.5 (0.1-0.6); MONO % 8.7 % (1.0-6.0); RED CELL DISTRIBUTION WIDTH 14.8 % (11.5-14.5); WHITE BLOOD COUNT 5.9 10^3/ul (4.5-11.0)
--- NOTE | 2017-11-13 07:34 | CP.PCM.PN ---
<[address] Way - Last Filed: 11/13/17 07:32> Subjective - Date & Time of Evaluation Date of Evaluation: 11/13/17 Time of Evaluation: 07:32 - Subjective Subjective: Surgery: Dr. Sorensen covering Dr. Lomax Pt seen and examined. Continues to have abd pain, mildly improved. +Nausea, no vomiting. Objective - Vital Signs/Intake and Output Vital Signs (last 24 hours): Temp Pulse Resp BP Pulse Ox 98.7 F 65 17 130/81 100 11/12/17 21:06 11/12/17 21:06 11/12/17 21:06 11/12/17 21:06 11/12/17 16:27 - Medications Medications: Current Medications Hydromorphone HCl (Dilaudid) 0.5 mg IVP Q4H PRN PRN Reason: Pain, severe (8-10) Last Admin: 11/13/17 04:48 Dose: 0.5 mg Sodium Chloride (Sodium Chloride 0.9%) 1,000 mls @ 100 mls/hr IV .Q10H CHARLY Last Admin: 11/12/17 20:00 Dose: 100 mls/hr Ketorolac Tromethamine (Toradol) 30 mg IVP Q6 PRN PRN Reason: Pain, moderate (4-7) Last Admin: 11/12/17 20:37 Dose: 30 mg Ondansetron HCl (Zofran Inj) 4 mg IVP Q4H PRN PRN Reason: Nausea/Vomiting Last Admin: 11/13/17 04:53 Dose: 4 mg Pantoprazole Sodium (Protonix Inj) 40 mg IVP DAILY CHARLY - Labs Labs: 11/13/17 07:00 11/12/17 16:37 - Constitutional Appears: Non-toxic, No Acute Distress - Head Exam Head Exam: ATRAUMATIC, NORMOCEPHALIC - Eye Exam Eye Exam: EOMI - ENT Exam ENT Exam: Mucous Membranes Moist - Neck Exam Neck Exam: Full ROM - Respiratory Exam Respiratory Exam: NORMAL BREATHING PATTERN. absent: Accessory Muscle Use, Respiratory Distress - GI/Abdominal Exam GI & Abdominal Exam: Soft, Tenderness. absent: Distended, Firm, Guarding, Rigid , Rebound - Neurological Exam Neurological Exam: Alert, Awake, Oriented x3 - Psychiatric Exam Psychiatric exam: Normal Affect, Normal Mood Assessment and Plan - Assessment and Plan (Free Text) Assessment: 22F s/p lap sommer w. abd pain and transaminitis, r/o bile leak vs retained CBD stone -HIDA scan today, if negative will order MRCP -c/w current medical management -d/w attending Rayna PGY3 <Shade Sorensen - Last Filed: 11/15/17 19:49> Objective - Vital Signs/Intake and Output Vital Signs (last 24 hours): Temp Pulse Resp BP Pulse Ox 98 F 65 18 124/77 98 11/14/17 16:18 11/14/17 16:18 11/14/17 16:18 11/14/17 16:18 11/14/17 16:18 - Labs Labs: 11/14/17 05:45 11/14/17 05:45 PT 15.1 SECONDS (9.4-12.5) H 11/13/17 08:45 INR 1.31 (0.93-1.08) H 11/13/17 08:45 Attending/Attestation - Attestation I have fully participated in the care of the patient.: Yes I have reviewed all pertinent clinical information, including history, physical exam and plan: Yes Notes (Text): Pt with abdominal pain s/p Lap Sommer Labs and radiology reviewed Ass: Possible retained stone Plan : HIDA scan and MRCP C.w IV antibiotics GI consult Plan d.w pt in detail
[2017-11-13 07:46] LABS: ALB/GLOB RATIO 1.4 (1.1-1.8); ALBUMIN 4.3 g/dL (3.0-4.8); ALT/SGPT 762 U/L (7-56); AST/SGOT 469 U/L (14-36); BLOOD UREA NITROGEN 6 mg/dL (7-21); CALCIUM 9.6 mg/dL (8.4-10.5); GFR AFRICAN-AMERICAN > 60; GFR NON-AFRICAN AMERICAN > 60
[2017-11-13 07:50] VITALS: O2SAT 98
[2017-11-13] MEDS: metroNIDAZOLE IV 500 mg/100 ml 500 MG/100 ML BAG IVPB SCH ×3 (08:34→21:07)
--- NOTE | 2017-11-13 08:38 | CP.PCM.CON ---
History of Present Illness - History of Present Illness History of Present Illness: Asked by hospitalist team for a GI consultation on this patient. 22 year old female with history of cholecystectomy on 10/24/17, childbirth 5 weeks prior who presents to hospital with complaint of progressive abdominal pain. She is seen in extreme discomfort, describes 10/10 intensity epigastric pain radiating to back since yesterday associated with multiple episodes of nausea and non-bloody emesis. She describes associated chills but denies fever, weight loss, or change in bowel habits. She came to ER the day before yesterday and was discharged with antibiotic therapy (bactrim) for UTI therapy. No prior endoscopic evaluation, no prior history of liver disease. Review of vitals from early this morning are normal. Social history: Non-smoker, no ETOH use Family history: Reviewed with patient, no history of GI malignancies Review of Systems - Review of Systems Review of Systems: - All other comprehensive 12 point review of systems performed, negative - Constitutional Constitutional: Chills - Cardiovascular Cardiovascular: absent: Acrocyanosis, Chest Pain, Chest Pain at Rest, Chest Pain with Activity, Claudication, Diaphoresis, Dyspnea, Dyspnea on Exertion, Edema, Irregular Heart Rhythm, Pain Radiating to Arm/Neck/Jaw, Leg Edema, Leg Ulcers, Lightheadedness, Orthopnea, Palpitations, Paroxysmal Nocturnal Dyspnea, Pedal Edema, Radiating Pain, Rapid Heart Rate, Slow Heart Rate, Syncope, Other - Respiratory Respiratory: absent: Cough, Dyspnea, Hemoptysis, Dyspnea on Exertion, Wheezing, Snoring, Stridor, Pain on Inspiration, Chest Congestion, Excessive Mucous Production, Change in Mucous Color, Pain with Coughing, Other - Gastrointestinal Gastrointestinal: Abdominal Pain, Nausea, Vomiting - Musculoskeletal Musculoskeletal: absent: Abnormal Gait, Arthralgias, Atrophy, Back Pain, Deformity, Joint Swelling, Limited Range of Motion, Loss of Height, Muscle Cramps, Muscle Weakness, Myalgias, Neck Pain, Numbness, Radiating Pain into Limb , Stiffness, Tingling, Other - Neurological Neurological: absent: Abnormal Gait, Abnormal Hearing, Abnormal Movements, Abnormal Speech, Behavioral Changes, Burning Sensations, Confusion, Convulsions , Disequilibrium, Dizziness, Numbness, Focal Weakness, Frequent Falls, Headaches , Lack of Coordination, Loss of Vision, Memory Loss, Paresthesias, Radicular Pain, Restless Legs, Sensory Deficit, Syncope, Tingling, Tremor, Vertigo, Weakness, Other Visual Disturbances, Other Past Patient History - Infectious Disease Hx of Infectious Diseases: None - Tetanus Immunizations Tetanus Immunization: Unknown - Past Social History Smoking Status: Never Smoked - CARDIAC Hx Cardiac Disorders: No - PULMONARY Hx Respiratory Disorders: No - NEUROLOGICAL Hx Neurological Disorder: No - HEENT Hx HEENT Problems: No - RENAL Hx Chronic Kidney Disease: No - ENDOCRINE/METABOLIC Hx Endocrine Disorders: No - HEMATOLOGICAL/ONCOLOGICAL Hx Blood Disorders: No - INTEGUMENTARY Hx Dermatological Problems: No - MUSCULOSKELETAL/RHEUMATOLOGICAL Hx Musculoskeletal Disorders: No Hx Falls: No - GASTROINTESTINAL Hx Gastrointestinal Disorders: Yes (BILIARY COLIC,FATTY LIVER) Hx Gall Bladder Disease: Yes (CHOLECYSTECTOMY) - GENITOURINARY/GYNECOLOGICAL Hx Genitourinary Disorders: Yes Hx Urinary Tract Infection: Yes Other/Comment: Recently had vaginal (09/2017) - PSYCHIATRIC Hx Psychophysiologic Disorder: No Hx Substance Use: No - SURGICAL HISTORY Hx Surgeries: Yes Hx Cholecystectomy: Yes - ANESTHESIA Hx Anesthesia: Yes Hx Anesthesia Reactions: No Hx Malignant Hyperthermia: No Meds Allergies/Adverse Reactions: Allergies Allergy/AdvReac Type Severity Reaction Status Date / Time amoxicillin Allergy RASH Verified 11/12/17 18:48 - Medications Medications: Current Medications Hydromorphone HCl (Dilaudid) 0.5 mg IVP Q4H PRN PRN Reason: Pain, severe (8-10) Last Admin: 11/13/17 04:48 Dose: 0.5 mg Sodium Chloride (Sodium Chloride 0.9%) 1,000 mls @ 100 mls/hr IV .Q10H CHARLY Last Admin: 11/13/17 05:20 Dose: 100 mls/hr Metronidazole (Flagyl) 500 mg in 100 mls @ 100 mls/hr IVPB Q8 CHARLY PRN Reason: Protocol Ciprofloxacin (Cipro 400mg/200ml Dsw) 400 mg in 200 mls @ 133.3 mls/hr IVPB Q12 CHARLY PRN Reason: Protocol Stop: 11/13/17 11:31 Ketorolac Tromethamine (Toradol) 30 mg IVP Q6 PRN PRN Reason: Pain, moderate (4-7) Last Admin: 11/12/17 20:37 Dose: 30 mg Ondansetron HCl (Zofran Inj) 4 mg IVP Q4H PRN PRN Reason: Nausea/Vomiting Last Admin: 11/13/17 04:53 Dose: 4 mg Pantoprazole Sodium (Protonix Inj) 40 mg IVP DAILY CHARLY Physical Exam - Constitutional Appears: Non-toxic, In Acute Distress - Head Exam Head Exam: NORMAL INSPECTION - Eye Exam Eye Exam: EOMI, Normal appearance - ENT Exam ENT Exam: Mucous Membranes Moist - Respiratory Exam Respiratory Exam: Clear to Auscultation Bilateral - Cardiovascular Exam Cardiovascular Exam: Tachycardia, +S1, +S2 - GI/Abdominal Exam GI & Abdominal Exam: Hypoactive Bowel Sounds, Soft, Tenderness Additional comments: epigastric tenderness to palpation, +guarding no palpable hepato/splenomegaly - Extremities Exam Extremities exam: Positive for: normal inspection - Neurological Exam Neurological exam: Alert, CN II-XII Intact, Oriented x3, Reflexes Normal - Psychiatric Exam Psychiatric exam: Agitated, Normal Affect - Skin Skin Exam: Dry, Intact, Normal Color, Warm Results - Vital Signs Recent Vital Signs: Last Vital Signs Temp 98.2 F 11/13/17 06:24 Pulse 65 11/13/17 06:24 Resp 18 11/13/17 06:24 BP 131/75 11/13/17 06:24 Pulse Ox 98 11/13/17 06:24 - Labs Result Diagrams: 11/13/17 07:00 11/13/17 07:00 Labs: Laboratory Results - last 24 hr 11/12/17 11/12/17 11/12/17 16:37 16:37 16:37 WBC RBC Hgb Hct MCV MCH MCHC RDW Plt Count MPV Gran % Lymph % (Auto) Mcmullen % (Auto) Eos % (Auto) Baso % (Auto) Gran # Lymph # (Auto) Mcmullen # (Auto) Eos # (Auto) Baso # (Auto) Sodium Potassium Chloride Carbon Dioxide Anion Gap BUN Creatinine Est GFR ( Amer) Est GFR (Non-Af Amer) Random Glucose Calcium Total Bilirubin AST ALT Alkaline Phosphatase Total Creatine Kinase Troponin I NT-Pro-B Natriuret Pep Total Protein Albumin Globulin Albumin/Globulin Ratio Urine Color Urine Appearance Urine pH Ur Specific [place] Urine Protein Urine Glucose (UA) Urine Ketones Urine Blood Urine Nitrate Urine Bilirubin Urine Urobilinogen Ur Leukocyte Esterase Urine RBC Urine WBC Ur Epithelial Cells Urine Opiates Screen Urine Methadone Screen Acetaminophen < 10.0 L Ur Barbiturates Screen Ur Phencyclidine Scrn Ur Amphetamines Screen U Benzodiazepines Scrn U Oth Cocaine Metabols U Cannabinoids Screen Alcohol, Quantitative < 10 IgG 1062.8 11/12/17 11/12/17 11/12/17 16:37 16:52 16:52 WBC RBC Hgb Hct MCV MCH MCHC RDW Plt Count MPV Gran % Lymph % (Auto) Mcmullen % (Auto) Eos % (Auto) Baso % (Auto) Gran # Lymph # (Auto) Mcmullen # (Auto) Eos # (Auto) Baso # (Auto) Sodium 145 Potassium 4.0 Chloride 111 H Carbon Dioxide 22 Anion Gap 16 BUN 4 L Creatinine 0.6 L Est GFR ( Amer) > 60 Est GFR (Non-Af Amer) > 60 Random Glucose 101 Calcium 9.2 Total Bilirubin 4.2 H AST 670 H ALT 852 H Alkaline Phosphatase 202 H Total Creatine Kinase Troponin I NT-Pro-B Natriuret Pep Total Protein 7.4 Albumin 4.3 Globulin 3.2 Albumin/Globulin Ratio 1.4 Urine Color Dark yellow Urine Appearance Slight-cloudy Urine pH 8.0 Ur Specific [place] 1.015 Urine Protein 30 H Urine Glucose (UA) 100 H Urine Ketones Negative Urine Blood Moderate H Urine Nitrate Negative Urine Bilirubin Moderate H Urine Urobilinogen 4.0 H Ur Leukocyte Esterase Large H Urine RBC 0 - 2 Urine WBC 5 - 10 Ur Epithelial Cells 4 - 5 Urine Opiates Screen Positive H Urine Methadone Screen Negative Acetaminophen Ur Barbiturates Screen Negative Ur Phencyclidine Scrn Negative Ur Amphetamines Screen Negative U Benzodiazepines Scrn Negative U Oth Cocaine Metabols Negative U Cannabinoids Screen Negative Alcohol, Quantitative IgG 11/12/17 11/13/17 11/13/17 18:00 00:30 07:00 WBC 5.9 D RBC 4.00 Hgb 11.2 L Hct 34.5 L MCV 86.3 MCH 28.0 MCHC 32.5 RDW 14.8 H Plt Count 360 MPV 9.7 Gran % 47.5 L Lymph % (Auto) 39.2 H Mcmullen % (Auto) 8.7 H Eos % (Auto) 3.9 Baso % (Auto) 0.7 Gran # 2.78 Lymph # (Auto) 2.3 Mcmullen # (Auto) 0.5 Eos # (Auto) 0.2 Baso # (Auto) 0.04 Sodium Potassium Chloride Carbon Dioxide Anion Gap BUN Creatinine Est GFR ( Amer) Est GFR (Non-Af Amer) Random Glucose Calcium Total Bilirubin AST ALT Alkaline Phosphatase Total Creatine Kinase 37 Troponin I < 0.01 < 0.01 NT-Pro-B Natriuret Pep 230 Total Protein Albumin Globulin Albumin/Globulin Ratio Urine Color Urine Appearance Urine pH Ur Specific [place] Urine Protein Urine Glucose (UA) Urine Ketones Urine Blood Urine Nitrate Urine Bilirubin Urine Urobilinogen Ur Leukocyte Esterase Urine RBC Urine WBC Ur Epithelial Cells Urine Opiates Screen Urine Methadone Screen Acetaminophen Ur Barbiturates Screen Ur Phencyclidine Scrn Ur Amphetamines Screen U Benzodiazepines Scrn U Oth Cocaine Metabols U Cannabinoids Screen Alcohol, Quantitative IgG 11/13/17 11/13/17 07:00 07:00 WBC RBC Hgb Hct MCV MCH MCHC RDW Plt Count MPV Gran % Lymph % (Auto) Mcmullen % (Auto) Eos % (Auto) Baso % (Auto) Gran # Lymph # (Auto) Mcmullen # (Auto) Eos # (Auto) Baso # (Auto) Sodium 145 Potassium 4.3 Chloride 110 H Carbon Dioxide 24 Anion Gap 17 BUN 6 L Creatinine 0.8 Est GFR ( Amer) > 60 Est GFR (Non-Af Amer) > 60 Random Glucose 103 Calcium 9.6 Total Bilirubin 4.3 H AST 469 H D ALT 762 H Alkaline Phosphatase 216 H Total Creatine Kinase Troponin I < 0.01 NT-Pro-B Natriuret Pep Total Protein 7.3 Albumin 4.3 Globulin 3.1 Albumin/Globulin Ratio 1.4 Urine Color Urine Appearance Urine pH Ur Specific [place] Urine Protein Urine Glucose (UA) Urine Ketones Urine Blood Urine Nitrate Urine Bilirubin Urine Urobilinogen Ur Leukocyte Esterase Urine RBC Urine WBC Ur Epithelial Cells Urine Opiates Screen Urine Methadone Screen Acetaminophen Ur Barbiturates Screen Ur Phencyclidine Scrn Ur Amphetamines Screen U Benzodiazepines Scrn U Oth Cocaine Metabols U Cannabinoids Screen Alcohol, Quantitative IgG Assessment & Plan - Assessment and Plan (Free Text) Assessment: History of cholecystectomy Abdominal pain Transaminitis Abdominal US reviewed by me showing normal caliber CBD (4mm), no intrahepatic dilation, s/p cholecystectomy, fatty liver CT imaging from prior day reviewed shows trace fluid in GB fossa, fecal retention Plan: - NPO - Continue to monitor LFTs, fractionate bilirubin - Viral hepatitis and autoimmune panels ordered by medical team, await results - Obtain INR - HIDA ordered by surgical team to rule out biliary leak, follow up results - Given clinical presentation, would begin patient on empiric antibiotic therapy (cipro/flagyl - given PCN allergy) - If workup remains negative, suggest MRCP for further evaluation - Consider ICU evaluation if patient clinical condition unchanged, will continue to closely monitor patient course
[2017-11-13 09:10] LABS: INR 1.31 (0.93-1.08); PROTHROMBIN TIME 15.1 SECONDS (9.4-12.5)
[2017-11-13] MEDS ORDERED: Ciprofloxacin 400mg/200ml D5W 400 MG/200 ML BAG IVPB SCH (10:00)
--- NOTE | 2017-11-13 14:22 | CP.PCM.PN ---
<Stone Whitmore - Last Filed: 11/13/17 17:27> Subjective - Date & Time of Evaluation Date of Evaluation: 11/13/17 Time of Evaluation: 07:20 - Subjective Subjective: IM Hospitalist Service Progress Note Patient seen and examined at bedside. Overnight and this AM, nursing reports patient still in significant pain, 3 episodes of clear emesis this AM. EKG was obtained to assess QTc, and was found to still be within normal range (< 450), so Zofran increased to 8mg IVP q4 prn for her severe nausea/emesis. With nausea /emesis controlled, pt reports improvement of chest and abdominal pain. Objective - Vital Signs/Intake and Output Vital Signs (last 24 hours): Temp Pulse Resp BP Pulse Ox 98.2 F 65 18 131/75 98 11/13/17 06:24 11/13/17 06:24 11/13/17 06:24 11/13/17 06:24 11/13/17 06:24 - Medications Medications: Current Medications Hydromorphone HCl (Dilaudid) 0.5 mg IVP Q4H PRN PRN Reason: Pain, severe (8-10) Last Admin: 11/13/17 13:36 Dose: 0.5 mg Sodium Chloride (Sodium Chloride 0.9%) 1,000 mls @ 100 mls/hr IV .Q10H [facility] Last Admin: 11/13/17 05:20 Dose: 100 mls/hr Metronidazole (Flagyl) 500 mg in 100 mls @ 100 mls/hr IVPB Q8 [facility] PRN Reason: Protocol Last Admin: 11/13/17 08:34 Dose: 100 mls/hr Ketorolac Tromethamine (Toradol) 30 mg IVP Q6 PRN PRN Reason: Pain, moderate (4-7) Last Admin: 11/12/17 20:37 Dose: 30 mg Ondansetron HCl (Zofran Inj) 4 mg IVP Q4H PRN PRN Reason: Nausea/Vomiting Last Admin: 11/13/17 13:37 Dose: 4 mg Pantoprazole Sodium (Protonix Inj) 40 mg IVP DAILY [facility] Last Admin: 11/13/17 11:02 Dose: 40 mg - Labs Labs: 11/13/17 07:00 11/13/17 07:00 PT 15.1 SECONDS (9.4-12.5) H 11/13/17 08:45 INR 1.31 (0.93-1.08) H 11/13/17 08:45 - Additional Findings Additional findings: - Constitutional Appears: Acute distress 2/2 nausea and emesis, non-toxic appearing but lethargic /fatigued - Head Exam Head Exam: ATRAUMATIC, NORMAL INSPECTION, NORMOCEPHALIC - Eye Exam Eye Exam: EOMI, Normal appearance - ENT Exam ENT Exam: Mucous Membranes Moist - Respiratory Exam Respiratory Exam: Clear to Auscultation Bilateral. absent: Rales, Rhonchi, Wheezes - Cardiovascular Exam Cardiovascular Exam: RRR, +S1, +S2. absent: Gallop, JVD, Rubs - GI/Abdominal Exam GI & Abdominal Exam: Soft, Tenderness. absent: Distended, Firm, Guarding, Rebound stretch gray notable on lower abdomen scars from cholecystectomy (healing) - Neurological Exam Neurological exam: Awake and alert but lethargic, following all commands appropriately, some spontaneous movement of extremities observed - Psychiatric Exam Psychiatric exam: Lethargic/somnolent, no overt anxiety/agitation - Skin Skin Exam: Dry, Intact, Normal Color, Warm Assessment and Plan - Assessment and Plan (Free Text) Assessment: This is a 22 yo female with history of uneventful delivery of her child 5 weeks prior and cholecystectomy 2 weeks prior presenting with complaint of epigastric abdominal pain, severe nausea, and frequent emesis in the setting of notable transaminitis. She was admitted for retained cholelithiasis causing choledocolithiasis vs cholangitis. Plan: 1) Severe abd pain/nausea/emesis + increased LFTs -retained cholelithiasis causing choledocolithaisis vs cholangitis -afebrile, no leukocytosis, and no jaundice appreciable, so less likely cholangitis -CT abd/pelvis from yesterday reviewed; revealed no significant or acute findings to account for abdominal pain -MRCP obtained, notable for ductal dilation, pending official read -switched to Cipro and Flagyl by GI, but no ID on board so Cipro will fall off after 1 dose; allergy to amoxicillin but only a rash, no hx of anaphylatic rxn, so safe to start on Rocephin -Workup pending including hepatitis panel, TIERRA, IGG, Anti-Sm, Anti-Mitochondrial -Drug screen positive for opiates only, tylenol and alcohol negative -NPO -Surgery consulted - Dr. Lomax; recs MRCP, likely retained stone -GI consulted - Dr. Campo; MRCP ordered, pending official read -toradol and dilaudid for pain control, Zofran increased to 8mg q4 prn given QTc < 450 after 4mg q4 + 8mg IVP dose and Reglan 10mg IVP x1 2. UTI -UA reviewed -continue flagyl, switched to rocephin since Cipro restricted Dispo: Remote tele, pending MRCP read, possible ERCP FEN: NPO, LR 100cc/hr Access: Peripheral IV Consults: GI, Surgery Ppx: protonix for GI, SCDs for DVT Patient seen, reviewed with attending, Dr. Souza. <Hitesh Souza - Last Filed: 11/13/17 18:17> Objective - Vital Signs/Intake and Output Vital Signs (last 24 hours): Temp Pulse Resp BP Pulse Ox 98.2 F 51 L 18 131/75 98 11/13/17 06:24 11/13/17 14:00 11/13/17 06:24 11/13/17 06:24 11/13/17 06:24 - Medications Medications: Current Medications Hydromorphone HCl (Dilaudid) 0.5 mg IVP Q4H PRN PRN Reason: Pain, severe (8-10) Last Admin: 11/13/17 17:55 Dose: 0.5 mg Sodium Chloride (Sodium Chloride 0.9%) 1,000 mls @ 100 mls/hr IV .Q10H [facility] Last Admin: 11/13/17 17:59 Dose: 100 mls/hr Metronidazole (Flagyl) 500 mg in 100 mls @ 100 mls/hr IVPB Q8 [facility] PRN Reason: Protocol Last Admin: 11/13/17 16:04 Dose: 100 mls/hr Ketorolac Tromethamine (Toradol) 30 mg IVP Q6 PRN PRN Reason: Pain, moderate (4-7) Last Admin: 11/12/17 20:37 Dose: 30 mg Ondansetron HCl (Zofran Inj) 8 mg IVP Q4H PRN PRN Reason: Nausea/Vomiting Last Admin: 11/13/17 17:56 Dose: 8 mg Pantoprazole Sodium (Protonix Inj) 40 mg IVP DAILY [facility] Last Admin: 11/13/17 11:02 Dose: 40 mg - Labs Labs: 11/13/17 07:00 11/13/17 07:00 PT 15.1 SECONDS (9.4-12.5) H 11/13/17 08:45 INR 1.31 (0.93-1.08) H 11/13/17 08:45 Attending/Attestation - Attestation I have personally seen and examined this patient.: Yes I have fully participated in the care of the patient.: Yes I have reviewed all pertinent clinical information, including history, physical exam and plan: Yes Notes (Text): 11/13/17 18:16 22 year old female with past medical history of recent cholecystectomy (2 weeks prior) and recent delivery (5 weeks prior) presents with abdominal pain; found to have significant transaminitis and UTI. CT abd/pelvis and abdominal ultrasound were reviewed as above. Surgery and GI evaluations were appreciated. HIDA and MRCP are pending. LFTs are slowly downtrending. She is on antibiotics for UTI. Ucx is pending. Hitesh Souza MD Hospitalist.
--- NOTE | 2017-11-13 16:32 | MRI ---
PROCEDURE: Magnetic Resonance Cholangiopancreatography HISTORY: COMPARISON: CT scan 11/11/2017, ultrasound abdomen 11/12/2017. TECHNIQUE: Multiplanar, multisequence MR images of the abdomen were obtained, including heavily T2 weighted MRCP images of the biliary system. Rotating maximum intensity projection images of the biliary system were generated. FINDINGS: MRCP: There is mild dilatation of the common bile duct, slightly larger than on the recent CT scan measuring 8-9 millimeters. Distal common bile duct however tapers normally at the ampulla, and just proximal to the ampulla measures 4 millimeters. No definite filling defect is seen in the common bile duct to suggest common bile duct retained calculus. Pancreatic duct is not dilated along its length. There is the suggestion of some mild intrahepatic ductal dilatation. LIVER: Liver appears to be fatty infiltrated with drop-off of signal on in and out of phase imaging. No focal liver mass is noted. Mild intrahepatic ductal dilatation is suspected. GALLBLADDER: Gallbladder has been removed as was seen on prior studies. Surgical clip in the gallbladder fossa causes susceptibility artifact. There are mild areas of high-signal fluid seen in the gallbladder fossa and adjacent to the central ducts and portal region. This is nonspecific. This could be postsurgical in origin. No large fluid collections to suggest bile leak are clearly seen. SPLEEN: Unremarkable. PANCREAS: Pancreas is normal in outline without evidence of pancreatic enlargement or peripancreatic inflammatory change. ADRENALS: Unremarkable. KIDNEYS: Unremarkable. AORTA: No aneurysm. ASCITES: Mild amount of ascites is seen in the gallbladder fossa and right upper quadrant. OTHER FINDINGS: Mild scoliosis is seen in the spine. Marrow signal is normal. No pleural effusions are seen. No pericardial effusion is noted. Limited evaluation of the bowel is within normal limits. No adenopathy is seen. Visualized portal vessels are better appreciated on the CT scan and appear grossly patent. IMPRESSION: MRCP images reveal 8-9 millimeter common bile duct size proximally with tapering distally. No appreciable filling defect in the common bile duct is noted to suggest retained calculus. Mild intrahepatic ductal dilatation is also seen. Patient is status post cholecystectomy with mild postsurgical changes and fluid in the gallbladder fossa. The may be some mild periportal edema noted in the should be further correlated clinically. Differential would include cholangitis and/or hepatitis. Probable fatty infiltration of the liver. No evidence of pancreatitis.
--- NOTE | 2017-11-13 22:40 | CARD ---
APPROVED REPORT EKG Measurement Heart [id number] <Conclusion> Sinus bradycardia with sinus arrhythmia Rightward axis Borderline ECG
--- NOTE | 2017-11-13 22:47 | CARD ---
APPROVED REPORT EKG Measurement Heart [id number] [id number] <Conclusion> Sinus bradycardia Otherwise normal ECG
[2017-11-14] MEDS: Sodium Chloride 0.9% 1,000 ML IV SCH (02:00)
[2017-11-14] MEDS: metroNIDAZOLE IV 500 mg/100 ml 500 MG/100 ML BAG IVPB SCH (06:33)
[2017-11-14 06:56] LABS: BASO # 0.02 K/mm3 (0.0-2.0); BASO % 0.3 % (0.0-3.0); EOS # 0.4 (0.0-0.7); EOS % 5.2 % (1.5-5.0); GRAN # 2.95 (1.4-6.5); HEMOGLOBIN 10.4 g/dL (12.0-16.0); LYMPH # 3.1 (1.2-3.4); LYMPH % 44.5 % (22.0-35.0); MEAN CELL VOLUME 86.7 fl (80.0-105.0); MEAN CORPUSCULAR HEMOGLOBIN 28.3 pg (25.0-35.0); MEAN CORPUSCULAR HGB CONC 32.6 g/dl (31.0-37.0); MONO # 0.5 (0.1-0.6); RBC 3.68 10^6/uL (3.5-6.1); WHITE BLOOD COUNT 6.9 10^3/ul (4.5-11.0)
[2017-11-14 07:41] LABS: ALB/GLOB RATIO 1.3 (1.1-1.8); ALT/SGPT 566 U/L (7-56); AST/SGOT 218 U/L (14-36); BLOOD UREA NITROGEN 9 mg/dL (7-21); GFR AFRICAN-AMERICAN > 60; GFR NON-AFRICAN AMERICAN > 60
--- NOTE | 2017-11-14 08:30 | CP.PCM.PN ---
<Cristela Ware - Last Filed: 11/14/17 09:36> Subjective - Date & Time of Evaluation Date of Evaluation: 11/14/17 Time of Evaluation: 08:00 - Subjective Subjective: GI Fellow PGY4 Progress Note Pt seen and evaluated at bedside, pt doing well with no more abdominal pain, nausea or vomiting. She feels much better this morning. She has been NPO for two days for imaging. +BM this am. Last does of pain medication was at 10pm. KAY scheduled this am. ROS: A 12pt ROS was negative except as above. Objective - Vital Signs/Intake and Output Vital Signs (last 24 hours): Temp Pulse Resp BP Pulse Ox 98.2 F 44 L 18 131/75 98 11/13/17 06:24 11/14/17 02:00 11/13/17 06:24 11/13/17 06:24 11/13/17 06:24 Intake and Output: 11/14/17 11/14/17 06:59 18:59 Intake Total 0 Balance 0 - Medications Medications: Current Medications Hydromorphone HCl (Dilaudid) 0.5 mg IVP Q4H PRN PRN Reason: Pain, severe (8-10) Last Admin: 11/13/17 22:00 Dose: 0.5 mg Sodium Chloride (Sodium Chloride 0.9%) 1,000 mls @ 100 mls/hr IV .Q10H [facility] Last Admin: 11/14/17 02:00 Dose: 100 mls/hr Metronidazole (Flagyl) 500 mg in 100 mls @ 100 mls/hr IVPB Q8 [facility] PRN Reason: Protocol Last Admin: 11/14/17 06:33 Dose: 100 mls/hr Ceftriaxone Sodium (Rocephin 1 Gram Ivpb) 1 gm in 100 mls @ 100 mls/hr IVPB DAILY [facility] PRN Reason: Protocol Ketorolac Tromethamine (Toradol) 30 mg IVP Q6 PRN PRN Reason: Pain, moderate (4-7) Last Admin: 11/12/17 20:37 Dose: 30 mg Ondansetron HCl (Zofran Inj) 8 mg IVP Q4H PRN PRN Reason: Nausea/Vomiting Last Admin: 11/14/17 00:20 Dose: 8 mg Pantoprazole Sodium (Protonix Inj) 40 mg IVP DAILY [facility] Last Admin: 11/13/17 11:02 Dose: 40 mg - Labs Labs: 11/14/17 05:45 11/14/17 05:45 PT 15.1 SECONDS (9.4-12.5) H 11/13/17 08:45 INR 1.31 (0.93-1.08) H 11/13/17 08:45 - Constitutional Appears: Non-toxic, No Acute Distress - Head Exam Head Exam: ATRAUMATIC, NORMAL INSPECTION, NORMOCEPHALIC - Eye Exam Eye Exam: EOMI, Normal appearance, PERRL Pupil Exam: PERRL - ENT Exam ENT Exam: Mucous Membranes Moist - Neck Exam Neck Exam: Full ROM, Normal Inspection - Respiratory Exam Respiratory Exam: Clear to Ausculation Bilateral, NORMAL BREATHING PATTERN - Cardiovascular Exam Cardiovascular Exam: Bradycardia, REGULAR RHYTHM, +S1, +S2 - GI/Abdominal Exam GI & Abdominal Exam: Soft, Normal Bowel Sounds. absent: Distended, Guarding, Rigid, Tenderness, Organomegaly - Rectal Exam Rectal Exam: Deferred - Extremities Exam Extremities Exam: Full ROM, Normal Inspection - Back Exam Back Exam: NORMAL INSPECTION - Neurological Exam Neurological Exam: Alert, Awake, Oriented x3 - Psychiatric Exam Psychiatric exam: Normal Affect, Normal Mood - Skin Skin Exam: Dry, Intact, Normal Color, Warm Assessment and Plan - Assessment and Plan (Free Text) Assessment: This is a 22 year old female with history of cholecystectomy on 10/24/17, childbirth 5 weeks ago who presents to hospital with complaint of severe abdominal pain. 1. Abdominal pain 2. Transaminitis 3. History of cholecystectomy Plan: -Continue supportive care with pain control and anti-emetics - MRCP with dilated CBD 8-9mm but no stone, Abdominal US normal caliber CBD (4mm ), no intrahepatic dilation, s/p cholecystectomy, fatty liver, CT imaging shows trace fluid in GB fossa, fecal retention - LFTs trending down, maybe due to a possible CBD stone passing? - Clinically improved with no abdominal pain - Continue to monitor LFTs, INR wnl - Viral hepatitis and autoimmune panels pending - HIDA scheduled for today, ordered by surgery - Continue abx, can discontinue if HIDA negative - Clear liquid diet, advance as tolerated - Will continue to monitor closely <Benny Campo - Last Filed: 11/14/17 11:14> Objective - Vital Signs/Intake and Output Vital Signs (last 24 hours): Temp Pulse Resp BP Pulse Ox 98 F 52 L 20 118/70 98 11/14/17 08:44 11/14/17 08:44 11/14/17 08:44 11/14/17 08:44 11/14/17 08:44 Intake and Output: 11/14/17 11/14/17 06:59 18:59 Intake Total 0 Balance 0 - Medications Medications: Current Medications Hydromorphone HCl (Dilaudid) 0.5 mg IVP Q4H PRN PRN Reason: Pain, severe (8-10) Last Admin: 11/13/17 22:00 Dose: 0.5 mg Sodium Chloride (Sodium Chloride 0.9%) 1,000 mls @ 100 mls/hr IV .Q10H [facility] Last Admin: 11/14/17 02:00 Dose: 100 mls/hr Metronidazole (Flagyl) 500 mg in 100 mls @ 100 mls/hr IVPB Q8 [facility] PRN Reason: Protocol Last Admin: 11/14/17 06:33 Dose: 100 mls/hr Ceftriaxone Sodium (Rocephin 1 Gram Ivpb) 1 gm in 100 mls @ 100 mls/hr IVPB DAILY [facility] PRN Reason: Protocol Ketorolac Tromethamine (Toradol) 30 mg IVP Q6 PRN PRN Reason: Pain, moderate (4-7) Last Admin: 11/12/17 20:37 Dose: 30 mg Ondansetron HCl (Zofran Inj) 8 mg IVP Q4H PRN PRN Reason: Nausea/Vomiting Last Admin: 11/14/17 00:20 Dose: 8 mg Pantoprazole Sodium (Protonix Inj) 40 mg IVP DAILY [facility] Last Admin: 11/13/17 11:02 Dose: 40 mg - Labs Labs: 11/14/17 05:45 11/14/17 05:45 PT 15.1 SECONDS (9.4-12.5) H 11/13/17 08:45 INR 1.31 (0.93-1.08) H 11/13/17 08:45 Attending/Attestation - Attestation I have personally seen and examined this patient.: Yes I have fully participated in the care of the patient.: Yes I have reviewed all pertinent clinical information, including history, physical exam and plan: Yes Notes (Text): 11/14/17 11:12 I have seen and examined patient with GI fellow. No acute events overnight, her abdominal pain has significantly improved as compared to yesterday. She has not required any pain medication overnight and denies nausea, vomiting, fever/chills. Abdominal pain Transaminitis, improving - Clinical scenario suggestive of passed gallstone - Liquid diet as tolerated - Continue to monitor LFTs, trending down. Viral hepatitis panel negative. - Awaiting results of autoimmune workup - HIDA ordered by surgical team, follow up results - Would discontinue antibiotic therapy if HIDA is negative - Patient would ultimately benefit from outpatient elective EUS given high likelihood of choledocholithiasis contributing to patient's initial symptoms - Will continue to monitor patient clinical course
[2017-11-14 08:34] LABS: HEPATITIS B SURFACE AG Negative (NEGATIVE)
[2017-11-14 08:40] LABS: HEPATITIS B CORE AB NEGATIVE (NEGATIVE)
[2017-11-14 08:44] VITALS: TEMP 98
[2017-11-14 08:51] LABS: HEPATITIS C ANTIBODY NEGATIVE (NEGATIVE)
[2017-11-14] MEDS ORDERED: Potassium Chloride 20 mEq ER Tab PO STA (08:53)
[2017-11-14 08:58] LABS: HEPATITIS A IGM NEGATIVE (NEGATIVE)
--- NOTE | 2017-11-14 09:00 | CP.PCM.PN ---
<Luis Felipe Lomax - Last Filed: 11/14/17 08:55> Subjective - Date & Time of Evaluation Date of Evaluation: 11/14/17 Time of Evaluation: 08:55 - Subjective Subjective: Surgery Progress Note: Patient seen and assessed at bedside. No acute events overnight. Patient reports that her pain has improved. She denies fevers, chills, headache, abdominal pain, N/V/D/C, or changes in urinary output. Objective - Vital Signs/Intake and Output Vital Signs (last 24 hours): Temp Pulse Resp BP Pulse Ox 98 F 52 L 20 118/70 98 11/14/17 08:44 11/14/17 08:44 11/14/17 08:44 11/14/17 08:44 11/14/17 08:44 Intake and Output: 11/14/17 11/14/17 06:59 18:59 Intake Total 0 Balance 0 - Medications Medications: Current Medications Hydromorphone HCl (Dilaudid) 0.5 mg IVP Q4H PRN PRN Reason: Pain, severe (8-10) Last Admin: 11/13/17 22:00 Dose: 0.5 mg Sodium Chloride (Sodium Chloride 0.9%) 1,000 mls @ 100 mls/hr IV .Q10H [facility] Last Admin: 11/14/17 02:00 Dose: 100 mls/hr Metronidazole (Flagyl) 500 mg in 100 mls @ 100 mls/hr IVPB Q8 CHARLY PRN Reason: Protocol Last Admin: 11/14/17 06:33 Dose: 100 mls/hr Ceftriaxone Sodium (Rocephin 1 Gram Ivpb) 1 gm in 100 mls @ 100 mls/hr IVPB DAILY [facility] PRN Reason: Protocol Ketorolac Tromethamine (Toradol) 30 mg IVP Q6 PRN PRN Reason: Pain, moderate (4-7) Last Admin: 11/12/17 20:37 Dose: 30 mg Ondansetron HCl (Zofran Inj) 8 mg IVP Q4H PRN PRN Reason: Nausea/Vomiting Last Admin: 11/14/17 00:20 Dose: 8 mg Pantoprazole Sodium (Protonix Inj) 40 mg IVP DAILY [facility] Last Admin: 11/13/17 11:02 Dose: 40 mg Potassium Chloride (K-Dur 20 Meq Er Tab) 40 meq PO STAT STA Stop: 11/14/17 08:54 - Labs Labs: 11/14/17 05:45 11/14/17 05:45 PT 15.1 SECONDS (9.4-12.5) H 11/13/17 08:45 INR 1.31 (0.93-1.08) H 11/13/17 08:45 - Constitutional Appears: Non-toxic, No Acute Distress - Head Exam Head Exam: ATRAUMATIC, NORMOCEPHALIC - Eye Exam Eye Exam: EOMI, Normal appearance - Respiratory Exam Respiratory Exam: NORMAL BREATHING PATTERN. absent: Accessory Muscle Use, Respiratory Distress - Cardiovascular Exam Cardiovascular Exam: REGULAR RHYTHM, RRR - GI/Abdominal Exam GI & Abdominal Exam: Soft, Normal Bowel Sounds. absent: Distended, Firm, Guarding, Rigid, Tenderness, Rebound - Neurological Exam Neurological Exam: Alert, Awake, Oriented x3 - Psychiatric Exam Psychiatric exam: Normal Affect, Normal Mood - Skin Skin Exam: Dry, Intact, Normal Color, Warm Assessment and Plan - Assessment and Plan (Free Text) Assessment: 22 year old female who is s/p laparoscopic cholecystectomy who presented with abdominal pain and transaminitis; R/O bile leak versus retained CBD stone Plan: -MRCP reviewed which showed 8-9mm CBD with mild periportal edema and hepatosteatosis -HIDA pending -NPO for HIDA and then CLD -Continue current medical management -D/W attending Leta Lomax PGY1 <Shade Sorensen - Last Filed: 11/15/17 20:00> Objective - Vital Signs/Intake and Output Vital Signs (last 24 hours): Temp Pulse Resp BP Pulse Ox 98 F 65 18 124/77 98 11/14/17 16:18 11/14/17 16:18 11/14/17 16:18 11/14/17 16:18 11/14/17 16:18 - Labs Labs: 11/14/17 05:45 11/14/17 05:45 PT 15.1 SECONDS (9.4-12.5) H 11/13/17 08:45 INR 1.31 (0.93-1.08) H 11/13/17 08:45 Attending/Attestation - Attestation I have fully participated in the care of the patient.: Yes I have reviewed all pertinent clinical information, including history, physical exam and plan: Yes Notes (Text): Pt has improved clinically Labs and radiology reviewed Ass: Pt has passed the stone in CBD Case D/w Dr. Campo in detail f/u as out pt Pt was discharged home before rounds.
[2017-11-14] MEDS ORDERED: cefTRIAXone 1 gm 1 GM/100 ML BAG IVPB SCH ×2 (10:00)
--- NOTE | 2017-11-14 11:29 | NM ---
PROCEDURE: Nuclear Medicine Hepatobiliary Scan HISTORY: r/o bile leak COMPARISON: None available. TECHNIQUE: 5.6 mCi of technetium 99m Mebrofenin was administered intravenously. Planar images of the abdomen were obtained at 5 min intervals to 60 mins. Delayed images were also obtained. FINDINGS: LIVER: Timely and homogenous uptake. COMMON BILE DUCT: identified at 10 mins. GALLBLADDER: Removed SMALL BOWEL: Identified at 15 mins. IMPRESSION: No evidence of bile leak
--- NOTE | 2017-11-14 15:33 | CP.PCM.DIS ---
<Cindy Cordova - Last Filed: 11/14/17 15:46> Provider - Provider Date of Admission: 11/12/17 15:45 Attending physician: Kristopher Corado MD Primary care physician: NO PRIMARY CARE PROVIDER Consults: General Surgery: Dami GI: Dr Campo Time Spent in preparation of Discharge (in minutes): 32 Hospital Course - Lab Results Lab Results: Micro Results 11/12/17 16:52 Urine,Clean Catch Urine Culture - Final No Growth (<1,000 CFU/ML) Most Recent Lab Values WBC 6.9 10^3/ul (4.5-11.0) 11/14/17 05:45 RBC 3.68 10^6/uL (3.5-6.1) 11/14/17 05:45 Hgb 10.4 g/dL (12.0-16.0) L 11/14/17 05:45 Hct 31.9 % (36.0-48.0) L 11/14/17 05:45 MCV 86.7 fl (80.0-105.0) 11/14/17 05:45 MCH 28.3 pg (25.0-35.0) 11/14/17 05:45 MCHC 32.6 g/dl (31.0-37.0) 11/14/17 05:45 RDW 15.0 % (11.5-14.5) H 11/14/17 05:45 Plt Count 336 10^3/uL (120.0-450.0) 11/14/17 05:45 MPV 10.0 fl (7.0-11.0) 11/14/17 05:45 Gran % 43.0 % (50.0-68.0) L 11/14/17 05:45 Lymph % (Auto) 44.5 % (22.0-35.0) H 11/14/17 05:45 [place] % (Auto) 7.0 % (1.0-6.0) H 11/14/17 05:45 Eos % (Auto) 5.2 % (1.5-5.0) H 11/14/17 05:45 Baso % (Auto) 0.3 % (0.0-3.0) 11/14/17 05:45 Gran # 2.95 (1.4-6.5) 11/14/17 05:45 Lymph # (Auto) 3.1 (1.2-3.4) 11/14/17 05:45 [place] # (Auto) 0.5 (0.1-0.6) 11/14/17 05:45 Eos # (Auto) 0.4 (0.0-0.7) 11/14/17 05:45 Baso # (Auto) 0.02 K/mm3 (0.0-2.0) 11/14/17 05:45 PT 15.1 SECONDS (9.4-12.5) H 11/13/17 08:45 INR 1.31 (0.93-1.08) H 11/13/17 08:45 Sodium 141 mmol/L (132-148) 11/14/17 05:45 Potassium 3.5 mmol/L (3.6-5.0) L 11/14/17 05:45 Chloride 109 mmol/L (98-107) H 11/14/17 05:45 Carbon Dioxide 19 mmol/L (21-33) L 11/14/17 05:45 Anion Gap 16 (10-20) 11/14/17 05:45 BUN 9 mg/dL (7-21) 11/14/17 05:45 Creatinine 0.6 mg/dl (0.7-1.2) L 11/14/17 05:45 Est GFR ( Amer) > 60 11/14/17 05:45 Est GFR (Non-Af Amer) > 60 11/14/17 05:45 Random Glucose 83 mg/dL (70-110) 11/14/17 05:45 Calcium 9.0 mg/dL (8.4-10.5) 11/14/17 05:45 Total Bilirubin 1.3 mg/dL (0.2-1.3) 11/14/17 05:45 AST 218 U/L (14-36) H D 11/14/17 05:45 ALT 566 U/L (7-56) H 11/14/17 05:45 Alkaline Phosphatase 213 U/L (38-126) H 11/14/17 05:45 Total Creatine Kinase 37 U/L (35-230) 11/12/17 18:00 Troponin I < 0.01 ng/mL 11/13/17 07:00 NT-Pro-B Natriuret Pep 230 pg/mL (0-450) 11/12/17 18:00 Total Protein 6.9 g/dL (5.8-8.3) 11/14/17 05:45 Albumin 4.0 g/dL (3.0-4.8) 11/14/17 05:45 Globulin 2.9 gm/dL 11/14/17 05:45 Albumin/Globulin Ratio 1.3 (1.1-1.8) 11/14/17 05:45 Lipase 42 U/L (23-300) 11/12/17 14:23 Urine Color Dark yellow (YELLOW) 11/12/17 16:52 Urine Appearance Slight-cloudy (CLEAR) 11/12/17 16:52 Urine pH 8.0 (4.7-8.0) 11/12/17 16:52 Ur Specific [place] 1.015 (1.005-1.035) 11/12/17 16:52 Urine Protein 30 mg/dL (<30 mg/dL) H 11/12/17 16:52 Urine Glucose (UA) 100 mg/dL (NEGATIVE) H 11/12/17 16:52 Urine Ketones Negative mg/dL (NEGATIVE) 11/12/17 16:52 Urine Blood Moderate (NEGATIVE) H 11/12/17 16:52 Urine Nitrate Negative (NEGATIVE) 11/12/17 16:52 Urine Bilirubin Moderate (NEGATIVE) H 11/12/17 16:52 Urine Urobilinogen 4.0 E.U./dL (<1 E.U./dL) H 11/12/17 16:52 Ur Leukocyte Esterase Large [place]/uL (NEGATIVE) H 11/12/17 16:52 Urine RBC 0 - 2 /hpf (0-2) 11/12/17 16:52 Urine WBC 5 - 10 /hpf (0-6) 11/12/17 16:52 Ur Epithelial Cells 4 - 5 /hpf (0-5) 11/12/17 16:52 Urine Opiates Screen Positive (NEGATIVE) H 11/12/17 16:52 Urine Methadone Screen Negative (NEGATIVE) 11/12/17 16:52 Acetaminophen < 10.0 ug/ml (10.0-20.0) L 11/12/17 16:37 Ur Barbiturates Screen Negative (NEGATIVE) 11/12/17 16:52 Ur Phencyclidine Scrn Negative (NEGATIVE) 11/12/17 16:52 Ur Amphetamines Screen Negative (NEGATIVE) 11/12/17 16:52 U Benzodiazepines Scrn Negative (NEGATIVE) 11/12/17 16:52 U Oth Cocaine Metabols Negative (NEGATIVE) 11/12/17 16:52 U Cannabinoids Screen Negative (NEGATIVE) 11/12/17 16:52 Alcohol, Quantitative < 10 mg/dL (0-10) 11/12/17 16:37 IgG 1062.8 mg/dL (700.0-1600.0) 11/12/17 16:37 Anti-Mitochondrial Ab Negative (Negative) 11/12/17 16:37 Smooth Muscle Ab Titer TEST NOT PERFORMED 11/12/17 16:37 Anti-Smooth Muscle Ab Negative (Negative) 11/12/17 16:37 Hepatitis A IgM Ab Negative (NEGATIVE) 11/12/17 16:37 Hep Bs Antigen Negative (NEGATIVE) 11/12/17 16:37 Hep B Core IgM Ab Negative (NEGATIVE) 11/12/17 16:37 Hepatitis C Antibody Negative (NEGATIVE) 11/12/17 16:37 - Hospital Course Hospital Course: History of Present Illness: Patient is a 22 yo female with no significant past medical history that presents c/o epigastric abdominal pain. She reports that the pain started yesterday at which point she went to the emergency room for evaluation. She was told at that time that she had a UTI, was given rocephin and subsequently discharged home on bactrim, zofran and percocet for pain. She reported that the pain got progressively worse over the last day and was associated with nausea, lack of appetite and nonbilious, nonbloody vomiting. She states that the pain previously radiated into her back but now localized to the epigastric region. Notably, she gave 5 weeks prior and underwent a cholecystectomy [address] Lomax. She reported no apparent alleviating or exacerbating factors and denied taking any over the counter supplements, herbal medications, illicit drug use or alcohol use. She recalled taking 2-3 doses of tylenol yesterday and 1 dose of percocet. She denied chest pain, palpitations, SOB, focal weakness, numbness, tingling. Hospital Course: Patient was admitted to Med/surg. She was made NPO and started on IV hydration. Abd US showed normal CBD and no intrahepatic dilation. CT abd/pelvis from previous ER visit showed trace fluid in gallbladder fossa. General surgery and GI consulted. Patient went for MRCP that showed 8-9 millimeter common bile duct size proximally with tapering distally. No appreciable filling defect in the common bile duct noted to suggest retained calculus. Mild intrahepatic ducatal dilation is seen. HIDA scan was negative for bile leak. Patient was treated with pain control and bowel rest. LFTs were elevated and trending down. Clinical and labortory findings were consistent with choledocholithiasis. Patient diet was advanced as tolerated. Pain improved significantly. During hospital course patient was started on IV antibiotics. UA was abnormal, urine cultures were negative. Will discharge on PO ciprofloxacin for UTI. Patient advised will need to continue GI soft diet outpatient. She will need repeat LFTs in 1 week to monitor improvement. She will also need outpatient follow up with GI for possible EUS. Discharge Medications: Ciprofloxacin 500mg PO Q12H x 5 days Discharge Diagnosis: Choledocholithiasis Urinary Tract Infection Discharge Exam - Head Exam Head Exam: ATRAUMATIC, NORMAL INSPECTION, NORMOCEPHALIC - Eye Exam Eye Exam: EOMI, Normal appearance Pupil Exam: NORMAL ACCOMODATION - ENT Exam ENT Exam: Mucous Membranes Moist - Respiratory Exam Respiratory Exam: Clear to PA & Lateral, NORMAL BREATHING PATTERN, UNREMARKABLE. absent: Rales, Rhonchi, Wheezes - Cardiovascular Exam Cardiovascular Exam: REGULAR RHYTHM, +S1, +S2 - GI/Abdominal Exam GI & Abdominal Exam: Normal Bowel Sounds, Soft. absent: Guarding, Rebound, Rigid, Tenderness - Extremities Exam Extremities exam: normal inspection - Neurological Exam Neurological exam: Alert, Normal Gait, Oriented x3 - Psychiatric Exam Psychiatric exam: Normal Affect, Normal Mood - Skin Skin Exam: Dry, Normal Color, Warm Discharge Plan - Discharge Medications Prescriptions: Ciprofloxacin [Cipro] 500 mg PO Q12H #10 tab - Follow Up Plan Condition: GUARDED Disposition: HOME/ ROUTINE Instructions: Nausea and Vomiting, Adult (DC), Acute Abdominal Pain (DC) Additional Instructions: 1. Patient is clear for discharge home 2. Will need to follow up with GI outpatient for possible Endoscopic US outpatient 3. Will need to recheck Liver function test in 1 week to make sure they are trending down 4. Continue GI soft/low fat diet 5. If having any worsening symptoms, go to nearest ER Referrals: PCP,NO [Primary Care Provider] - <Kristopher Corado - Last Filed: 11/15/17 13:14> Provider - Provider Date of Admission: 11/12/17 15:45 Attending physician: Kristopher Corado MD Primary care physician: NO PRIMARY CARE PROVIDER Hospital Course - Lab Results Lab Results: Micro Results 11/12/17 16:52 Urine,Clean Catch Urine Culture - Final No Growth (<1,000 CFU/ML) Most Recent Lab Values WBC 6.9 10^3/ul (4.5-11.0) 11/14/17 05:45 RBC 3.68 10^6/uL (3.5-6.1) 11/14/17 05:45 Hgb 10.4 g/dL (12.0-16.0) L 11/14/17 05:45 Hct 31.9 % (36.0-48.0) L 11/14/17 05:45 MCV 86.7 fl (80.0-105.0) 11/14/17 05:45 MCH 28.3 pg (25.0-35.0) 11/14/17 05:45 MCHC 32.6 g/dl (31.0-37.0) 11/14/17 05:45 RDW 15.0 % (11.5-14.5) H 11/14/17 05:45 Plt Count 336 10^3/uL (120.0-450.0) 11/14/17 05:45 MPV 10.0 fl (7.0-11.0) 11/14/17 05:45 Gran % 43.0 % (50.0-68.0) L 11/14/17 05:45 Lymph % (Auto) 44.5 % (22.0-35.0) H 11/14/17 05:45 [place] % (Auto) 7.0 % (1.0-6.0) H 11/14/17 05:45 Eos % (Auto) 5.2 % (1.5-5.0) H 11/14/17 05:45 Baso % (Auto) 0.3 % (0.0-3.0) 11/14/17 05:45 Gran # 2.95 (1.4-6.5) 11/14/17 05:45 Lymph # (Auto) 3.1 (1.2-3.4) 11/14/17 05:45 [place] # (Auto) 0.5 (0.1-0.6) 11/14/17 05:45 Eos # (Auto) 0.4 (0.0-0.7) 11/14/17 05:45 Baso # (Auto) 0.02 K/mm3 (0.0-2.0) 11/14/17 05:45 PT 15.1 SECONDS (9.4-12.5) H 11/13/17 08:45 INR 1.31 (0.93-1.08) H 11/13/17 08:45 Sodium 141 mmol/L (132-148) 11/14/17 05:45 Potassium 3.5 mmol/L (3.6-5.0) L 11/14/17 05:45 Chloride 109 mmol/L (98-107) H 11/14/17 05:45 Carbon Dioxide 19 mmol/L (21-33) L 11/14/17 05:45 Anion Gap 16 (10-20) 11/14/17 05:45 BUN 9 mg/dL (7-21) 11/14/17 05:45 Creatinine 0.6 mg/dl (0.7-1.2) L 11/14/17 05:45 Est GFR ( Amer) > 60 11/14/17 05:45 Est GFR (Non-Af Amer) > 60 11/14/17 05:45 Random Glucose 83 mg/dL (70-110) 11/14/17 05:45 Calcium 9.0 mg/dL (8.4-10.5) 11/14/17 05:45 Total Bilirubin 1.3 mg/dL (0.2-1.3) 11/14/17 05:45 AST 218 U/L (14-36) H D 11/14/17 05:45 ALT 566 U/L (7-56) H 11/14/17 05:45 Alkaline Phosphatase 213 U/L (38-126) H 11/14/17 05:45 Total Creatine Kinase 37 U/L (35-230) 11/12/17 18:00 Troponin I < 0.01 ng/mL 11/13/17 07:00 NT-Pro-B Natriuret Pep 230 pg/mL (0-450) 11/12/17 18:00 Total Protein 6.9 g/dL (5.8-8.3) 11/14/17 05:45 Albumin 4.0 g/dL (3.0-4.8) 11/14/17 05:45 Globulin 2.9 gm/dL 11/14/17 05:45 Albumin/Globulin Ratio 1.3 (1.1-1.8) 11/14/17 05:45 Lipase 42 U/L (23-300) 11/12/17 14:23 Urine Color Dark yellow (YELLOW) 11/12/17 16:52 Urine Appearance Slight-cloudy (CLEAR) 11/12/17 16:52 Urine pH 8.0 (4.7-8.0) 11/12/17 16:52 Ur Specific [place] 1.015 (1.005-1.035) 11/12/17 16:52 Urine Protein 30 mg/dL (<30 mg/dL) H 11/12/17 16:52 Urine Glucose (UA) 100 mg/dL (NEGATIVE) H 11/12/17 16:52 Urine Ketones Negative mg/dL (NEGATIVE) 11/12/17 16:52 Urine Blood Moderate (NEGATIVE) H 11/12/17 16:52 Urine Nitrate Negative (NEGATIVE) 11/12/17 16:52 Urine Bilirubin Moderate (NEGATIVE) H 11/12/17 16:52 Urine Urobilinogen 4.0 E.U./dL (<1 E.U./dL) H 11/12/17 16:52 Ur Leukocyte Esterase Large [place]/uL (NEGATIVE) H 11/12/17 16:52 Urine RBC 0 - 2 /hpf (0-2) 11/12/17 16:52 Urine WBC 5 - 10 /hpf (0-6) 11/12/17 16:52 Ur Epithelial Cells 4 - 5 /hpf (0-5) 11/12/17 16:52 Urine Opiates Screen Positive (NEGATIVE) H 11/12/17 16:52 Urine Methadone Screen Negative (NEGATIVE) 11/12/17 16:52 Acetaminophen < 10.0 ug/ml (10.0-20.0) L 11/12/17 16:37 Ur Barbiturates Screen Negative (NEGATIVE) 11/12/17 16:52 Ur Phencyclidine Scrn Negative (NEGATIVE) 11/12/17 16:52 Ur Amphetamines Screen Negative (NEGATIVE) 11/12/17 16:52 U Benzodiazepines Scrn Negative (NEGATIVE) 11/12/17 16:52 U Oth Cocaine Metabols Negative (NEGATIVE) 11/12/17 16:52 U Cannabinoids Screen Negative (NEGATIVE) 11/12/17 16:52 Alcohol, Quantitative < 10 mg/dL (0-10) 11/12/17 16:37 IgG 1062.8 mg/dL (700.0-1600.0) 11/12/17 16:37 Anti-Mitochondrial Ab Negative (Negative) 11/12/17 16:37 Smooth Muscle Ab Titer TEST NOT PERFORMED 11/12/17 16:37 Anti-Smooth Muscle Ab Negative (Negative) 11/12/17 16:37 Hepatitis A IgM Ab Negative (NEGATIVE) 11/12/17 16:37 Hep Bs Antigen Negative (NEGATIVE) 11/12/17 16:37 Hep B Core IgM Ab Negative (NEGATIVE) 11/12/17 16:37 Hepatitis C Antibody Negative (NEGATIVE) 11/12/17 16:37 Attending/Attestation - Attestation I have personally seen and examined this patient.: Yes I have fully participated in the care of the patient.: Yes I have reviewed all pertinent clinical information, including history, physical exam and plan: Yes Notes (Text): 11/15/17 13:13 Medical record note made by the resident after discussion with my direction and input after the patient was personally seen and examined by me. I have reviewed the chart and agree that the record accurately reflects by personal performance of the history, physical exam, data review, and medical decision-making, in the course for the patient. I have also personally directed the plan of care. 22 year old female with past medical history of recent cholecystectomy (2 weeks prior) and recent delivery (5 weeks prior) presents with abdominal pain; found to have significant elevated transaminases and UTI. . CT abd/pelvis from previous ER visit showed trace fluid in gallbladder fossa. General surgery and GI consulted. Patient went for MRCP that showed 8-9 millimeter common bile duct size proximally with tapering distally. No appreciable filling defect in the common bile duct noted to suggest retained calculus. Mild intrahepatic ducatal dilation is seen. HIDA scan was negative for bile leak. Patient was seen in consultation with GI and surgery.Her abdominal pain has improved. She is tolerating diet LFT are coming down. Patient is afebrile, cultures are negative at the time of discharge. She will be discharged home on oral antibiotic for UTI and will follow up with PCP/GI and Surgery. She will need repeat LFT in one week Management plan was discussed in detail with patient. Education was provided.
[2017-11-14 16:19] VITALS: BP 124/77; PULSE 65; RESP 18
== END 2017-11-14 21:34 | disposition home or self-care (01) | DRG 776 ==
LOC: ED 12:24 → ERH 15:45 → 3RNO 17:41
PROVIDERS: ADMIT Internal Medicine; ATTEND Internal Medicine
DX: O99.63 Diseases of the digestive system complicating the puerperium (principal); K80.50 Calculus of bile duct without cholangitis or cholecystitis without obstruction; O86.20 Urinary tract infection following delivery, unspecified; Z90.49 Acquired absence of other specified parts of digestive tract

== ENCOUNTER 2017-11-17 19:11 | Observation (INO) | payer OTHER ==
[2017-11-17] MEDS ORDERED: Morphine 4 mg/ml ISec IVP STA ×2 (19:42→21:40)
[2017-11-17] MEDS ORDERED: Sodium Chloride 0.9% 1,000 ML IV STA ×2 (19:42→22:00)
--- NOTE | 2017-11-17 19:44 | ED PDOC ---
Arrival/HPI - General Chief Complaint: Abdominal Pain Time Seen by Provider: 11/17/17 19:13 - History of Present Illness Narrative History of Present Illness (Text): 22 y/o F c PSHx cholecystectomy approximately 1 month ago p/w abdominal pain x 1 hour. Pain is epigastric, severe, constant, nonradiating, associated with nausea, did not begin after food. Reports pain feels same as her abdominal pain for which she was admitted to this hospital over the weekend. During that admission, according to chart review, patient had elevated LFTs that were downtrending, pain was resolved by the time of discharge, MRCP showed no stone, 9mm CBD tapering distally. Patient denies current fever, skin color change, back pain, dysuria, vaginal bleeding. Past Medical History - Past History Past History: No Previous - Infectious Disease Hx of Infectious Diseases: None - Tetanus Immunization Tetanus Immunization: Unknown - Cardiac Hx Cardiac Disorders: No - Pulmonary Hx Respiratory Disorders: No - Neurological Hx Neurological Disorder: No - HEENT Hx HEENT Disorder: No - Renal Hx Renal Disorder: Yes Other/Comment: UTI - Endocrine/Metabolic Hx Endocrine Disorders: No - Hematological/Oncological Hx Blood Disorders: No - Integumentary Hx Dermatological Disorder: No - Musculoskeletal/Rheumatological Hx Musculoskeletal Disorders: No Hx Falls: No - Gastrointestinal Hx Gastrointestinal Disorders: Yes (BILIARY COLIC,FATTY LIVER) Hx Gall Bladder Disease: Yes (CHOLECYSTECTOMY) - Genitourinary/Gynecological Hx Genitourinary Disorders: Yes Hx Urinary Tract Infection: Yes Other/Comment: Recently had vaginal (09/2017) - Psychiatric Hx Psychophysiologic Disorder: No Hx Substance Use: No - Surgical History Hx Cholecystectomy: Yes - Anesthesia Hx Anesthesia: Yes Hx Anesthesia Reactions: No Hx Malignant Hyperthermia: No Family/Social History Family/Social History: No Known Family HX Smoking Status: Never Smoked Hx Alcohol Use: No Hx Substance Use: No Hx Substance Use Treatment: No Allergies/Home Meds Allergies/Adverse Reactions: Allergies amoxicillin Allergy (Verified 11/17/17 19:13) RASH Review of Systems - Physician Review All systems were reviewed & negative as marked: Yes - Review of Systems Constitutional: absent: Fevers Gastrointestinal: absent: Vomiting Physical Exam - Physical Exam Narrative Physical Exam (Text): Gen: In acute distress secondary to pain Head: NC/AT Eyes: No scleral icterus ENT: MMM Neck: Supple Chest: No deformity CV: Regular rate Lungs: CTA b/l Abd: Epigastric tenderness without guarding Back: No CVA tenderness Skin: No jaundice Extremities: No edema Neuro: Alert, no focal deficit Vital Signs Temp Pulse Resp BP Pulse Ox 11/17/17 19:14 97.5 F L 79 24 120/76 100 Medical Decision Making ED Course and Treatment: Differential at this time includes gastritis, pancreatitis, choledocolithiasis. Will treat with morphine and Zofran and check labs, LFTs, lipase, abdominal US. Transaminitis, downtrending from last admission. Patient continues to be severely uncomfortable. Additional morphine administered. 11/17/17 22:02: Case discussed in detail with Dr. Hopkins who accepts patient to his service. Recommended consult form Dr. Lomax (Surgery) and Dr. Campo ( Gastroenterology) who had both seen patient previously. US Abdomen Complete EXAM DATE/TIME: 11/17/2017 7:42 PM Dictated and Authenticated by: Syl Joe MD 11/17/2017 9:42 PM Eastern Time ([place] & [place]) IMPRESSION: Prominent common duct status post cholecystectomy; no acute solid visceral abnormality - Lab Interpretations Lab Results: 11/17/17 20:06 11/17/17 20:06 Lab Results 11/17/17 20:06: Sodium 143, Potassium 4.5, Chloride 105, Carbon Dioxide 23, Anion Gap 19, BUN 7, Creatinine 0.5 L, Est GFR ( Amer) > 60, Est GFR (Non -Af Amer) > 60, Random Glucose 95, Calcium 10.0, Phosphorus 3.0, Magnesium 1.6 L , Total Bilirubin 1.0, AST 157 H D, ALT 255 H, Alkaline Phosphatase 244 H, Total Protein 8.2, Albumin 4.8, Globulin 3.4, Albumin/Globulin Ratio 1.4, Lipase 230 11/17/17 20:06: Urine Color Light yellow, Urine Appearance Clear, Urine pH 8.5, Ur Specific [place] 1.015, Urine Protein Negative, Urine Glucose (UA) Negative, Urine Ketones Negative, Urine Blood Negative, Urine Nitrate Negative, Urine Bilirubin Negative, Urine Urobilinogen 0.2, Ur Leukocyte Esterase Negative, Urine HCG, Qual Negative 11/17/17 20:06: WBC 8.8 D, RBC 4.33, Hgb 12.6 D, Hct 36.8, MCV 85.0, MCH 29.1 , MCHC 34.2, RDW 14.8 H, Plt Count 394, MPV 10.2, Gran % 51.3, Lymph % (Auto) 37.0 H, [place] % (Auto) 5.8, Eos % (Auto) 5.7 H, Baso % (Auto) 0.2, Gran # 4.51, Lymph # (Auto) 3.3, [place] # (Auto) 0.5, Eos # (Auto) 0.5, Baso # (Auto) 0.02 - RAD Interpretation Radiology Orders: 11/17/17 19:42 ABDOMEN COMPLETE [US] Stat - Medication Orders Current Medication Orders: Sodium Chloride (Sodium Chloride 0.9%) 1,000 mls @ 40 mls/hr IV .Q24H STA Stop: 11/18/17 21:59 Discontinued Medications Sodium Chloride (Sodium Chloride 0.9%) 1,000 mls @ 999 mls/hr IV .Q1H1M STA Stop: 11/17/17 20:42 Last Admin: 11/17/17 20:19 Dose: 999 mls/hr eMAR Start Stop Document 11/17/17 20:19 (Rec: 11/17/17 20:22 [id number]) Intravenous Solution Start Date 11/17/17 Start Time 20:19 Morphine Sulfate (Morphine) 4 mg IVP STAT STA Stop: 11/17/17 19:43 Last Admin: 11/17/17 20:18 Dose: 4 mg [facility] Pain Assessment Document 11/17/17 20:18 RG (Rec: 11/17/17 20:21 [id number]) Pain Reassessment Is this a pain reassessment? Yes Presence of Pain Presence of Pain Yes Pain Scale Used Pain Scale Used Numeric Location Upper or Lower Upper Pain Location Body Site Abdomen Description Description Constant Intensity of Pain at present 8 Pain Behavior Crying Rubbing Site Facial Grimacing IVP Administration Document 11/17/17 20:18 RG (Rec: 11/17/17 20:21 [id number]) Charges for Administration # of IVP Administrations 1 Re-Assess: PRE[place] Pain Assessment Document 11/17/17 21:18 RG (Rec: 11/17/17 21:40 SHANDA [id number]) Pain Reassessment Is this a pain reassessment? Yes Sleep Is patient sleeping during reassessment? No Presence of Pain Presence of Pain Yes Location Upper or Lower Upper Pain Location Body Site Abdomen Morphine Sulfate (Morphine) 4 mg IVP STAT STA Stop: 11/17/17 21:41 Last Admin: 11/17/17 21:48 Dose: 4 mg MAR Pain Assessment Document 11/17/17 21:48 (Rec: 11/17/17 21:48 [id number]) Pain Reassessment Is this a pain reassessment? Yes Sleep Is patient sleeping during reassessment? No Presence of Pain Presence of Pain Yes Pain Scale Used Pain Scale Used Numeric Location Upper or Lower Upper Pain Location Body Site Abdomen Description Description Constant Pain Behavior Crying Rubbing Site IVP Administration Document 11/17/17 21:48 (Rec: 11/17/17 21:48 [id number]) Charges for Administration # of IVP Administrations 1 Ondansetron HCl (Zofran Inj) 8 mg IVP STAT STA Stop: 11/17/17 19:43 Last Admin: 11/17/17 20:17 Dose: 8 mg IVP Administration Document 11/17/17 20:17 (Rec: 11/17/17 20:20 [id number]) Charges for Administration # of IVP Administrations 1 Disposition/Present on Arrival - Present on Arrival Any Indicators Present on Arrival: No History of DVT/PE: No History of Uncontrolled Diabetes: No Urinary Catheter: No History of Decub. Ulcer: No History Surgical Site Infection Following: None - Disposition Have Diagnosis and Disposition been Completed?: Yes Diagnosis: Intractable pain, Transaminitis Disposition: HOSPITALIZED Disposition Time: 21:48 Patient Plan: Observation Condition: FAIR Referrals: PCP,NO [Primary Care Provider] - Follow up with primary Forms: [employer] (Guinean)
[2017-11-17 20:18] LABS: BASO # 0.02 K/mm3 (0.0-2.0); BASO % 0.2 % (0.0-3.0); EOS # 0.5 (0.0-0.7); EOS % 5.7 % (1.5-5.0); GRAN # 4.51 (1.4-6.5); GRAN % 51.3 % (50.0-68.0); HEMOGLOBIN 12.6 g/dL (12.0-16.0); LYMPH # 3.3 (1.2-3.4); MEAN CORPUSCULAR HEMOGLOBIN 29.1 pg (25.0-35.0); MEAN CORPUSCULAR HGB CONC 34.2 g/dl (31.0-37.0); MEAN PLATELET VOLUME 10.2 fl (7.0-11.0); MONO # 0.5 (0.1-0.6); MONO % 5.8 % (1.0-6.0); PH,URINE 8.5 (4.7-8.0); RBC 4.33 10^6/uL (3.5-6.1); RED CELL DISTRIBUTION WIDTH 14.8 % (11.5-14.5); URINE BILIRUBIN NEGATIVE (NEGATIVE); URINE BLOOD NEGATIVE (NEGATIVE); URINE GLUCOSE (UA) NEGATIVE (NEGATIVE); URINE LEUKOCYTE ESTERASE NEGATIVE Leu/uL (NEGATIVE); URINE PROTEIN NEGATIVE mg/dL (<30 mg/dL); URINE UROBILINOGEN 0.2 E.U./dL (<1 E.U./dL); WHITE BLOOD COUNT 8.8 10^3/ul (4.5-11.0)
[2017-11-17 20:20] LABS: URINE APPEARANCE CLEAR (CLEAR); URINE COLOR LIGHT YELLOW (YELLOW)
[2017-11-17 20:29] LABS: HCG,QUALITATIVE URINE NEGATIVE (NEGATIVE)
[2017-11-17 20:30] LABS: ALB/GLOB RATIO 1.4 (1.1-1.8); ALBUMIN 4.8 g/dL (3.0-4.8); ALT/SGPT 255 U/L (7-56); AST/SGOT 157 U/L (14-36); BLOOD UREA NITROGEN 7 mg/dL (7-21); GFR AFRICAN-AMERICAN > 60; GFR NON-AFRICAN AMERICAN > 60; LIPASE 230 U/L (23-300)
--- NOTE | 2017-11-17 21:43 | US ---
EXAM: US Abdomen Complete EXAM DATE/TIME: 11/17/2017 7:42 PM CLINICAL HISTORY: 22 years old, female; Pain; Abdominal pain; Epigastric; Additional info: Upper abd pain, S/P mukesh TECHNIQUE: Real-time ultrasound of the abdomen (complete) with image documentation. COMPARISON: US - GALLBLADDER PANCREAS 2017-10-24 02:08 FINDINGS: Liver: Liver is unremarkable.There is hepatopedal flow in the main portal vein. Gallbladder: Gallbladder is absent. Common bile duct: Common bile duct measures approximately 10 mm in diameter area Pancreas: Pancreas is partially obscured by bowel gas. Visualized portion is unremarkable. Kidneys: Right kidney measures approximately 10.4 cm in length. Left kidney measures approximately 10.87 m in length. Corticomedullary differentiation is maintained. There is no pelvocaliectasis. Spleen: Spleen is unremarkable. Aorta: Visualized portions of the aorta and inferior vena cava are unremarkable. Inferior vena cava: See above. IMPRESSION: Prominent common duct status post cholecystectomy; no acute solid visceral abnormality
[2017-11-17] MEDS ORDERED: Morphine 4 mg/ml ISec IVP PRN (23:17)
[2017-11-18 01:43] VITALS: BMI 24.7
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
[2017-11-18 08:35] VITALS: RESP 20
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
[2017-11-18] MEDS ORDERED: Sodium Chloride 0.9% 1,000 ML IV SCH (15:30)
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
[2017-11-19 07:28] LABS: HEMOGLOBIN 10.9 g/dL (12.0-16.0); MEAN CELL VOLUME 87.3 fl (80.0-105.0); MEAN CORPUSCULAR HEMOGLOBIN 28.2 pg (25.0-35.0); MEAN CORPUSCULAR HGB CONC 32.2 g/dl (31.0-37.0); MEAN PLATELET VOLUME 10.3 fl (7.0-11.0); RBC 3.87 10^6/uL (3.5-6.1); RED CELL DISTRIBUTION WIDTH 15.2 % (11.5-14.5); WHITE BLOOD COUNT 7.7 10^3/ul (4.5-11.0)
[2017-11-19 07:48] LABS: ALB/GLOB RATIO 1.4 (1.1-1.8); ALBUMIN 3.8 g/dL (3.0-4.8); ALT/SGPT 623 U/L (7-56); AST/SGOT 339 U/L (14-36); BLOOD UREA NITROGEN 5 mg/dL (7-21); GFR AFRICAN-AMERICAN > 60; GFR NON-AFRICAN AMERICAN > 60
[2017-11-19 08:28] VITALS: BP 126/69; PULSE 61; TEMP 98; O2SAT 100
--- NOTE | 2017-11-19 09:25 | CP.PCM.PN ---
<Anabelle Adkins - Last Filed: 11/19/17 10:44> Subjective - Date & Time of Evaluation Date of Evaluation: 11/19/17 Time of Evaluation: 09:15 - Subjective Subjective: Gastroenterology Fellow/PGY5 Progress Note Patient notes resolved nausea. Mild sore throat. tolerated full liquid diet. No bowel movement overnight. Objective - Vital Signs/Intake and Output Vital Signs (last 24 hours): Temp Pulse Resp BP Pulse Ox 98 F 61 20 126/69 100 11/19/17 08:27 11/19/17 08:27 11/19/17 08:27 11/19/17 08:27 11/19/17 08:27 Intake and Output: 11/19/17 11/19/17 06:59 18:59 Intake Total 840 Balance 840 - Medications Medications: Current Medications Alprazolam (Xanax) 0.25 mg PO Q6 PRN; Protocol PRN Reason: Anxiety Stop: 11/25/17 06:01 Last Admin: 11/18/17 01:12 Dose: 0.25 mg Sodium Chloride (Sodium Chloride 0.9%) 1,000 mls @ 100 mls/hr IV .Q10H CHARLY Last Admin: 11/19/17 06:32 Dose: 100 mls/hr Morphine Sulfate (Morphine) 4 mg IVP Q4H PRN PRN Reason: Pain, severe (8-10) Last Admin: 11/18/17 01:12 Dose: 4 mg Ondansetron HCl (Zofran Inj) 4 mg IVP Q6H PRN PRN Reason: Nausea/Vomiting Last Admin: 11/18/17 17:04 Dose: 4 mg - Labs Labs: 11/19/17 06:30 11/19/17 06:30 - Constitutional Appears: Non-toxic, No Acute Distress - Head Exam Head Exam: ATRAUMATIC, NORMOCEPHALIC - Eye Exam Eye Exam: EOMI, PERRL. absent: Scleral icterus Pupil Exam: NORMAL ACCOMODATION, PERRL - ENT Exam ENT Exam: Mucous Membranes Moist, Normal Oropharynx - Neck Exam Neck Exam: Full ROM, Normal Inspection - Respiratory Exam Respiratory Exam: Clear to Ausculation Bilateral. absent: Rales, Rhonchi, Wheezes - Cardiovascular Exam Cardiovascular Exam: RRR, +S1, +S2. absent: Gallop, Rubs - GI/Abdominal Exam GI & Abdominal Exam: Soft, Normal Bowel Sounds. absent: Distended, Firm, Guarding, Tenderness, Organomegaly, Rebound - Extremities Exam Extremities Exam: Full ROM. absent: Pedal Edema - Neurological Exam Neurological Exam: Alert, Awake - Skin Skin Exam: Dry, Intact, Normal Color, Warm Assessment and Plan - Assessment and Plan (Free Text) Assessment: 22 year old female with PMH of cholecystectomy on 10/24/17 presenting with epigastric pain. Recent discharge 11/14/17 for transaminitis 2/2 to suspicion of a passed gallstone, improving LFTs by time of discharge, and planned outpatient EUS. Active treatment of transaminitis with epigastric pain POD1 EGD/EUS/ERCP showing possible retained cystic duct remnant stone, mild papillary stenosis with sphincterotomy and sludge extraction. Plan: -no signs of post-ERCP pancreatitis -tolerated regular diet -follow up biopsies of stomach and duodenum to rule out H. Pylori and celiac disease -okay to discharge from GI standpoint -outpatient GI follow up if abdominal pain re-occurs and/or elevated LFTs persist <Karen Paez - Last Filed: 11/19/17 13:07> Objective - Vital Signs/Intake and Output Vital Signs (last 24 hours): Temp Pulse Resp BP Pulse Ox 98 F 61 20 126/69 100 11/19/17 08:27 11/19/17 08:27 11/19/17 08:27 11/19/17 08:27 11/19/17 08:27 Intake and Output: 11/19/17 11/19/17 06:59 18:59 Intake Total 840 540 Balance 840 540 - Medications Medications: Current Medications Alprazolam (Xanax) 0.25 mg PO Q6 PRN; Protocol PRN Reason: Anxiety Stop: 11/25/17 06:01 Last Admin: 11/18/17 01:12 Dose: 0.25 mg Sodium Chloride (Sodium Chloride 0.9%) 1,000 mls @ 100 mls/hr IV .Q10H CHARLY Last Admin: 11/19/17 06:32 Dose: 100 mls/hr Morphine Sulfate (Morphine) 4 mg IVP Q4H PRN PRN Reason: Pain, severe (8-10) Last Admin: 11/18/17 01:12 Dose: 4 mg Ondansetron HCl (Zofran Inj) 4 mg IVP Q6H PRN PRN Reason: Nausea/Vomiting Last Admin: 11/18/17 17:04 Dose: 4 mg - Labs Labs: 11/19/17 06:30 11/19/17 06:30 Attending/Attestation - Attestation I have personally seen and examined this patient.: Yes I have fully participated in the care of the patient.: Yes I have reviewed all pertinent clinical information, including history, physical exam and plan: Yes Notes (Text): 11/19/17 13:05 This is a 22 year old female with PMH of cholecystectomy on 10/24/17 presenting with epigastric pain s/p EGD/EUS/ERCP showing possible retained cystic duct remnant stone, mild papillary stenosis with sphincterotomy and sludge extraction. No signs of post-ERCP pancreatitis and tolerating regular diet. okay to discharge from GI standpoint Thank you for letting us participate in the care of your patient
--- NOTE | 2017-11-19 10:44 | CP.PCM.PN ---
Subjective - Date & Time of Evaluation Date of Evaluation: 11/19/17 Time of Evaluation: 10:41 - Subjective Subjective: Surgery: Dr. Lomax (Dr. [facility]) Pt seen and examined. No acute overnight events. Pt states she feels well this morning and pain has resolved. She tolerated liquids yesterday without N/V. Denies F/C. Objective - Vital Signs/Intake and Output Vital Signs (last 24 hours): Temp Pulse Resp BP Pulse Ox 98 F 61 20 126/69 100 11/19/17 08:27 11/19/17 08:27 11/19/17 08:27 11/19/17 08:27 11/19/17 08:27 Intake and Output: 11/19/17 11/19/17 06:59 18:59 Intake Total 840 540 Balance 840 540 - Medications Medications: Current Medications Alprazolam (Xanax) 0.25 mg PO Q6 PRN; Protocol PRN Reason: Anxiety Stop: 11/25/17 06:01 Last Admin: 11/18/17 01:12 Dose: 0.25 mg Sodium Chloride (Sodium Chloride 0.9%) 1,000 mls @ 100 mls/hr IV .Q10H CHARLY Last Admin: 11/19/17 06:32 Dose: 100 mls/hr Morphine Sulfate (Morphine) 4 mg IVP Q4H PRN PRN Reason: Pain, severe (8-10) Last Admin: 11/18/17 01:12 Dose: 4 mg Ondansetron HCl (Zofran Inj) 4 mg IVP Q6H PRN PRN Reason: Nausea/Vomiting Last Admin: 11/18/17 17:04 Dose: 4 mg - Labs Labs: 11/19/17 06:30 11/19/17 06:30 - Constitutional Appears: Well, No Acute Distress - Head Exam Head Exam: ATRAUMATIC, NORMOCEPHALIC - Eye Exam Eye Exam: Normal appearance - ENT Exam ENT Exam: Mucous Membranes Moist - Respiratory Exam Respiratory Exam: NORMAL BREATHING PATTERN - Cardiovascular Exam Cardiovascular Exam: RRR - GI/Abdominal Exam GI & Abdominal Exam: Soft. absent: Tenderness - Neurological Exam Neurological Exam: Alert, Awake, Oriented x3 - Skin Skin Exam: Dry, Warm Assessment and Plan - Assessment and Plan (Free Text) Assessment: 22F s/p lap mukesh with retained stone ; s/p ERCP/EUS Plan: - advanced to reg diet by GI - clear for DC from surgical standpoint - f/u with Dr. Lomax in 1 week - DC on Levaquin for 5 days Xavier, PGY-3
--- NOTE | 2017-11-20 11:54 | DS ---
HISTORY OF PRESENT ILLNESS: I was hoping to discharge her last night after her scope at , but she got very nauseous. She could not eat last night; she was upset. 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 She ate well for breakfast. She is eating well for lunch. She is on morphine, IV fluids, Xanax, Zofran. PHYSICAL EXAMINATION: VITAL SIGNS: She has 98 temperature, 61 pulse, 126/69 blood pressure, 20 respiratory rate and 100% O2 saturation on room air. HEENT: Head is atraumatic, normocephalic. HEART: Regular rate. LUNGS: Clear to auscultation. ABDOMEN: Soft, obese, nontender. EXTREMITIES: No edema. LABORATORY DATA: She has a 7.7 white count, 10.9 hemoglobin, 33.8 hematocrit with 349 platelets. Sodium 146, potassium 3.6, BUN 5, creatinine 0.6. GFR is greater than 60. Sugar is 89. Calcium is AST is 339, ALT is 623, alkaline phosphatase is 252, total protein 6.6. They manipulated her gallbladder and sphincter so that is why elevated. She will follow up as an outpatient. She was put on Levaquin by the GI doctor. I told her to follow up with her primary care physician and she is being discharged today. She is not breast feeding so Levaquin was okay. This is a patient who had intractable abdominal pain and high LFTs. Stanley Hopkins DO [email or web address]
== END 2017-11-19 14:00 | disposition home or self-care (01) ==
LOC: ED 19:11 → ERH 22:02 → 5RNO 23:47
PROVIDERS: ADMIT Family Medicine; ATTEND Family Medicine
DX: K91.86 Retained cholelithiasis following cholecystectomy (principal); K83.1 Obstruction of bile duct; K83.8 Other specified diseases of biliary tract; R10.13 Epigastric pain; Z90.49 Acquired absence of other specified parts of digestive tract; F43.10 Post-traumatic stress disorder, unspecified; Z88.0 Allergy status to penicillin; R11.0 Nausea
CPT/HCPCS: 36415; 76700; 80053; 81003; 83690; 83735; 84100; 84703; 85025; 85027; 96374; 96375; 96376; 99285; G0378; J2270; J2405; J7040

== ENCOUNTER 2018-03-31 20:10 | Emergency (ER) | payer OTHER ==
[2018-03-31 20:10] VITALS: BMI 24.7
[2018-03-31] MEDS ORDERED: Sodium Chloride 0.9% 1,000 ML IV STA (20:37)
[2018-03-31 21:33] LABS: PH,URINE 6.5 (4.7-8.0); URINE APPEARANCE CLEAR (CLEAR); URINE BILIRUBIN NEGATIVE (NEGATIVE); URINE BLOOD MODERATE (NEGATIVE); URINE COLOR LIGHT YELLOW (YELLOW); URINE GLUCOSE (UA) NEGATIVE (NEGATIVE); URINE LEUKOCYTE ESTERASE SMALL Leu/uL (NEGATIVE); URINE PROTEIN NEGATIVE mg/dL (<30 mg/dL); URINE UROBILINOGEN 0.2 E.U./dL (<1 E.U./dL)
[2018-03-31 21:41] LABS: URINE BACTERIA NEG (NEG); URINE RBC 0 - 2 /hpf (0-2)
[2018-03-31 22:31] LABS: HEMOGLOBIN 14.2 g/dL (12.0-16.0); MEAN CELL VOLUME 86.6 fl (80.0-105.0); MEAN CORPUSCULAR HEMOGLOBIN 29.8 pg (25.0-35.0); MEAN CORPUSCULAR HGB CONC 34.4 g/dl (31.0-37.0); MEAN PLATELET VOLUME 9.4 fl (7.0-11.0); RBC 4.77 10^6/uL (3.5-6.1); RED CELL DISTRIBUTION WIDTH 13.2 % (11.5-14.5); WHITE BLOOD COUNT 9.2 10^3/ul (4.5-11.0)
[2018-03-31 22:43] LABS: ALB/GLOB RATIO 1.4 (1.1-1.8); ALBUMIN 4.6 g/dL (3.0-4.8); ALT/SGPT 27 U/L (7-56); AST/SGOT 19 U/L (14-36); BLOOD UREA NITROGEN 5 mg/dL (7-21); CALCIUM 10.2 mg/dL (8.4-10.5); GFR NON-AFRICAN AMERICAN > 60; LIPASE 48 U/L (23-300)
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
[2018-03-31 23:36] VITALS: O2SAT 100
[2018-04-01] MEDS ORDERED: Morphine 2 mg/ml ISec IVP STA (00:42)
[2018-04-01 01:05] VITALS: RESP 16
[2018-04-01 03:02] VITALS: BP 109/61; PULSE 70; TEMP 98.2
== END 2018-04-01 03:01 | disposition home or self-care (01) ==
LOC: ED 20:10
DX: K52.9 Noninfective gastroenteritis and colitis, unspecified (principal)
CPT/HCPCS: 80053; 81001; 83690; 85027; 87086; 96374; 96375; 99283; J1885; J2270; J2405; J7030

== ENCOUNTER 2018-05-21 13:49 | Emergency (ER) | payer OTHER ==
[2018-05-21 13:49] VITALS: BMI 24.7
[2018-05-21] MEDS ORDERED: Sodium Chloride 0.9% 1,000 ML IV STA (14:22)
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
[2018-05-21 15:21] LABS: BASO # 0.01 K/mm3 (0.0-2.0); BASO % 0.2 % (0.0-3.0); EOS # 0.3 (0.0-0.7); EOS % 5.1 % (1.5-5.0); GRAN # 2.16 (1.4-6.5); GRAN % 41.1 % (50.0-68.0); HEMOGLOBIN 13.3 g/dL (12.0-16.0); LYMPH # 2.4 (1.2-3.4); MEAN CELL VOLUME 86.6 fl (80.0-105.0); MEAN CORPUSCULAR HEMOGLOBIN 29.6 pg (25.0-35.0); MEAN CORPUSCULAR HGB CONC 34.2 g/dl (31.0-37.0); MEAN PLATELET VOLUME 9.9 fl (7.0-11.0); MONO # 0.5 (0.1-0.6); MONO % 8.6 % (1.0-6.0); RBC 4.49 10^6/uL (3.5-6.1); RED CELL DISTRIBUTION WIDTH 13.3 % (11.5-14.5); WHITE BLOOD COUNT 5.3 10^3/uL (4.5-11.0)
[2018-05-21 15:27] LABS: URINE BILIRUBIN NEGATIVE (NEGATIVE); URINE BLOOD LARGE (NEGATIVE); URINE GLUCOSE (UA) NEGATIVE (NEGATIVE); URINE LEUKOCYTE ESTERASE MODERATE Leu/uL (NEGATIVE); URINE PROTEIN TRACE mg/dL (<30 mg/dL); URINE UROBILINOGEN 0.2 E.U./dL (<1 E.U./dL)
[2018-05-21 15:28] LABS: URINE APPEARANCE SL CLOUDY (CLEAR); URINE COLOR YELLOW (YELLOW)
[2018-05-21 15:29] LABS: ALB/GLOB RATIO 1.4 (1.1-1.8); ALBUMIN 4.6 g/dL (3.0-4.8); ALT/SGPT 26 U/L (7-56); AST/SGOT 19 U/L (14-36); BLOOD UREA NITROGEN 8 mg/dL (7-21); CALCIUM 9.7 mg/dL (8.4-10.5); GFR NON-AFRICAN AMERICAN > 60
[2018-05-21] MEDS ORDERED: Alum-Mag Hydrox-Simethicone Susp (30 mL) PO STA (15:39)
[2018-05-21] MEDS ORDERED: Atrop/Hyosc/Scopal/PB Elixir (120 ml) PO STA (15:39)
[2018-05-21 16:03] LABS: URINE BACTERIA MOD (NEG)
[2018-05-21 17:23] VITALS: RESP 16; O2SAT 99
[2018-05-21 17:30] VITALS: BP 127/76; PULSE 76; TEMP 98.2
== END 2018-05-21 17:30 | disposition home or self-care (01) ==
LOC: ED 13:49
DX: K29.70 Gastritis, unspecified, without bleeding (principal); N39.0 Urinary tract infection, site not specified; R51 Headache
CPT/HCPCS: 80053; 81001; 85025; 87086; 96361; 96374; 96375; 99284; J1885; J2765; J7030